=== PATIENT | female | born 1945 | race Caucasian/White ===

== ENCOUNTER → 2024-02-01 | Outpatient (CLI) | payer OTHER, SELFPAY ==
[2024-02-01 13:52] LABS: Basophils # (Auto) 0.1 Thou/mm3 (0.0-0.2); Basophils % (Auto) 1 % (0-2.5); Eosinophils # (Auto) 0.1 Thou/mm3 (0.0-0.5); Eosinophils % (Auto) 0 % (0-10); Hematocrit 35.2 % (36.0-46.0); Immature Granulocytes % (Auto) 1 % (0-0); Immature Granulocytes Auto 0.09 Thou/mm3 (0.00-0.00); Lymphocytes # (Auto) 1.5 Thou/mm3 (1.0-4.8); Lymphocytes % (Auto) 8 % (10-50); Mean Corpuscular HGB Conc 34.1 g/dl (31.0-37.0); Mean Corpuscular Hemoglobin 29.1 pg (25.0-35.0); Mean Corpuscular Volume 85 fL (80-100); Monocytes # (Auto) 1.4 Thou/mm3 (0.0-0.8); Monocytes % (Auto) 7 % (0-12); Neutrophils # (Auto) 15.9 Thou/mm3 (1.8-7.7); Neutrophils % (Auto) 84 % (37-80); Nucleated Red Blood Cell % 0 /100 WBC (0); Platelet Count 436 Thou/mm3 (140-440); RDW Standard Deviation 42.2 fL (36.4-46.3); Red Blood Count 4.12 Miln/mm3 (4.00-5.20)
[2024-02-01 14:30] LABS: Alanine Aminotransferase 14 U/L (10-49); Albumin, Serum 4.7 gm/dL (3.4-4.8); Albumin/Globulin Ratio 2.4 (1.2-2.2); Alkaline Phosphatase 97 U/L (46-116); Anion Gap 8 (7-16); Aspartate Amino Transferase 17 U/L (0-34); BUN/Creatinine Ratio 11 Ratio (12-20); Bilirubin,Total 0.9 mg/dL (0.3-1.2); Blood Urea Nitrogen 11 mg/dL (9-23); Carbon Dioxide 26.1 mMol/L (20.0-31.0); Cardiac Risk Estimate 2.5 RATIO (3.7-5.6); Chloride 96 mMol/L (98-107); Cholesterol 173 mg/dL (132-200); Glucose 115 mg/dL (74-106); HDL Cholesterol 68 mg/dL (40-60); LDL Cholesterol,Calculated 86 mg/dL (0-130); Osmolality,Calculated 261 (275-295); Potassium 3.8 mMol/L (3.4-5.1); Sodium 130 mMol/L (136-145); Thyroid Stimulating Hormone 2.84 uIU/mL (0.55-4.78); Total Protein 6.7 gm/dL (5.7-8.2); Triglycerides 96 mg/dL (30-150); eGFR 57 See Note
[2024-02-01 15:33] LABS: Collection Type, Urine Clean Catch
[2024-02-01 16:06] LABS: Bilirubin,Urine Negative (Negative); Blood,Urine Negative (Negative); Clarity,Urine Clear (Clear/Hazy); Color,Urine Lt-Yellow (Lt Yel-Yel); Glucose, Urine Negative (Negative); Ketones,Urine Negative (Negative); Leukocyte Esterase,Urine Negative (Negative); Nitrite,Urine Negative (Negative); PH,Urine 7.5 (5.0-7.0); Protein,Urine Negative (Neg - Trace); RBC,Urine 1 /hpf (0-3); Specific Gravity,Urine 1.011 (1.001-1.035); Squamous Epithelial Cell,Urine 4 /hpf (0-5); Urobilinogen,Urine Negative mg/dL (0.0-1.0); WBC,Urine 2 /hpf (0-5)
== END | disposition home or self-care (01) ==
LOC: COPL 12:32
PROVIDERS: PCP Internal Medicine; Referring Provider Internal Medicine; Visit Provider Internal Medicine
DX: E03.9 Hypothyroidism, unspecified (principal); I10 Essential (primary) hypertension; E78.5 Hyperlipidemia, unspecified
CPT/HCPCS: 36415; 80053; 80061; 81001; 83970; 84443; 85025

== ENCOUNTER → 2024-06-20 | Outpatient (CLI) | payer OTHER, SELFPAY ==
[2024-06-20 11:00] LABS: Collection Type, Urine Clean Catch
[2024-06-20 11:25] LABS: Basophils # (Auto) 0.1 Thou/mm3 (0.0-0.2); Basophils % (Auto) 1 % (0-2.5); Eosinophils # (Auto) 0.2 Thou/mm3 (0.0-0.5); Eosinophils % (Auto) 2 % (0-10); Hematocrit 32.7 % (36.0-46.0); Hemoglobin 11.2 g/dL (12.0-16.0); Immature Granulocytes % (Auto) 1 % (0-0); Immature Granulocytes Auto 0.08 Thou/mm3 (0.00-0.00); Lymphocytes # (Auto) 2.4 Thou/mm3 (1.0-4.8); Lymphocytes % (Auto) 27 % (10-50); Mean Corpuscular HGB Conc 34.3 g/dl (31.0-37.0); Mean Corpuscular Hemoglobin 27.9 pg (25.0-35.0); Mean Corpuscular Volume 81 fL (80-100); Monocytes % (Auto) 11 % (0-12); Neutrophils # (Auto) 5.3 Thou/mm3 (1.8-7.7); Neutrophils % (Auto) 58 % (37-80); Nucleated Red Blood Cell % 0 /100 WBC (0); Platelet Count 398 Thou/mm3 (140-440); RDW Standard Deviation 39.8 fL (36.4-46.3); Red Blood Count 4.02 Miln/mm3 (4.00-5.20); White Blood Count 9.1 Thou/mm3 (3.6-11.0)
[2024-06-20 11:38] LABS: Bilirubin,Urine Negative (Negative); Blood,Urine Negative (Negative); Clarity,Urine Clear (Clear/Hazy); Color,Urine Colorless (Lt Yel-Yel); Glucose, Urine Negative (Negative); Ketones,Urine Negative (Negative); Leukocyte Esterase,Urine Negative (Negative); Nitrite,Urine Negative (Negative); Protein,Urine Negative (Neg - Trace); RBC,Urine < 1 /hpf (0-3); Specific Gravity,Urine 1.006 (1.001-1.035); Squamous Epithelial Cell,Urine < 1 /hpf (0-5); Urobilinogen,Urine Negative mg/dL (0.0-1.0); WBC,Urine < 1 /hpf (0-5)
[2024-06-20 11:52] LABS: Glucose Estimated Average 131 mg/dL (80-131); Hemoglobin A1C 6.2 % Hgb (4.8-6.0)
[2024-06-20 11:54] LABS: Parathyroid Hormone Intact 107.7 pg/ml (18.5-88.0)
[2024-06-20 12:01] LABS: Alanine Aminotransferase 12 U/L (10-49); Albumin, Serum 4.5 gm/dL (3.4-4.8); Albumin/Globulin Ratio 2.3 (1.2-2.2); Alkaline Phosphatase 109 U/L (46-116); Anion Gap 9 (7-16); Aspartate Amino Transferase 20 U/L (0-34); BUN/Creatinine Ratio 14 Ratio (12-20); Bilirubin,Total 0.7 mg/dL (0.3-1.2); Blood Urea Nitrogen 13 mg/dL (9-23); Calcium 9.7 mg/dL (8.3-10.6); Calcium (Corrected) 9.7 mg/dL (8.5-10.1); Carbon Dioxide 28.3 mMol/L (20.0-31.0); Cardiac Risk Estimate 2.6 RATIO (3.7-5.6); Chloride 92 mMol/L (98-107); Cholesterol 153 mg/dL (132-200); Creatinine (Component) 0.9 mg/dL (0.6-1.3); Glucose 110 mg/dL (74-106); HDL Cholesterol 60 mg/dL (40-60); LDL Cholesterol,Calculated 70 mg/dL (0-130); Osmolality,Calculated 260 (275-295); Potassium 3.9 mMol/L (3.4-5.1); Sodium 129 mMol/L (136-145); Thyroid Stimulating Hormone 7.99 uIU/mL (0.55-4.78); Total Protein 6.5 gm/dL (5.7-8.2); Triglycerides 113 mg/dL (30-150); Uric Acid 7.6 mg/dL (3.1-7.8); eGFR > 60 See Note
[2024-06-20 12:07] LABS: Vitamin B12 976 pg/mL (211-911)
== END | disposition home or self-care (01) ==
LOC: COPL 10:09
PROVIDERS: PCP Internal Medicine; Referring Provider Internal Medicine; Visit Provider Internal Medicine
DX: E03.9 Hypothyroidism, unspecified (principal); I10 Essential (primary) hypertension; E78.5 Hyperlipidemia, unspecified; D51.9 Vitamin B12 deficiency anemia, unspecified; E55.9 Vitamin D deficiency, unspecified
CPT/HCPCS: 36415; 80053; 80061; 81001; 82306; 82607; 83036; 83970; 84443; 84550; 85025

== ENCOUNTER 2024-08-17 13:58 | Emergency (ER) | payer OTHER, SELFPAY ==
[2024-08-17 13:59] VITALS: BMI 28.3
--- NOTE | 2024-08-17 14:02 | EKG_ITS ---
[facility] Test Date: 2024-08-17 Pat Name: ADAM GARCIA Department: Room: - Gender: Female [employer] Supervisor: : 1945 Requested By: ED Temporary Provider Order Number: [id number] Reading MD: ED Temporary Provider Measurements Intervals [place] Rate: 65 P: [place]: QRS: -42 QRSD: 85 T: -4 QT: 375 QTc: 393 Interpretive Statements ATRIAL FIBRILLATION LEFT AXIS DEVIATION [QRS AXIS < -30] LOW QRS VOLTAGE IN PRECORDIAL LEADS [QRS DEFLECTION < 1.0 mV IN CHEST LEADS] ANTEROSEPTAL MYOCARDIAL INFARCTION , OF INDETERMINATE AGE [40+ ms Q WAVE IN V1-V4] No previous ECG available for comparison /store/S0/[id number]
[2024-08-17 14:12] VITALS: BP 137/83; PULSE 66; RESP 18; TEMP 36.8; O2SAT 98
--- NOTE | 2024-08-17 14:13 | XR_ITS ---
Examination: AP lateral chest 2 views TECHNIQUE: Sitting AP lateral chest 2 views Date and time: August 17, 2024 1526 hours Comparison January 142019 INDICATIONS: Chest pain today. FINDINGS: Moderate hyperexpansion Accentuation basilar bronchovascular markings. Stable small granuloma right upper lobe Normal heart size No lobar pneumonia or pulmonary edema IMPRESSION: COPD Basilar bronchitis pattern
--- NOTE | 2024-08-17 14:13 | XR_ITS ---
EXAMINATION: Ankle, left 3 views . Technique: Ankle AP, oblique, lateral 3 views Date and time of exam: August 17, 2024 1518 hours INDICATIONS: Injury to the ankle today, ankle pain. FINDINGS: Acute fractures distal fibular shaft, on the oblique view 4 mm offset of the main fracture fragments Medial malleolar fracture, 5 mm separation at the fracture site No definite ankle dislocation IMPRESSION: Bimalleolar ankle fractures
--- NOTE | 2024-08-17 14:13 | XR_ITS ---
Examination: CT brain head without contrast. 2-D sagittal coronal reconstructions Date and time of exam:August 17, 2024 1506 hours INDICATIONS: Syncopal episode today, patient fell with injury to head, head pain CTDI: vol (mGy):46.1 DLP: (mGycm):875 Technique: Multiple CT axial sections of the brain have been obtained, 5 mm slice thickness. Contrast has not been administered. 2-D sagittal, coronal reconstructions have been obtained Low dose protocols were performed. One or more of the following dose reduction techniques were used; automated exposure control, adjustment of the mA and/or KV according to patient size, use of iterative reconstruction technique. Findings: No significant ventricular enlargement. Intra-axial or extra-axial hemorrhage density is not seen. No mass effect or midline shift Basal cisterns are not remarkable. Fourth ventricle is midline. Cranial vault intact. Impression: Negative for acute hemorrhage, mass effect or midline shift
--- NOTE | 2024-08-17 14:14 | EDRME_ITS ---
Rapid Medical Screening Exam [facility] Arrival date/time: 08/17/24 13:58 78-year-old female with a history of hyperlipidemia, hypertension, presents to the emergency room with a chief complaint of a syncopal episode that occurred today while in the restroom. Patient states she passed out fell hit her head and now having injury to her left ankle as well. I have greeted and performed a focused initial assessment of this patient. A comprehensive ED assessment and evaluation of the patient, analysis of all test results, and completion of the medical decision making process will be conducted by additional ED providers. Chief Complaint: Syncope / Near Syncope Vital signs: Vital Signs Temperature 98.2 F 08/17/24 14:12 Pulse Rate 66 08/17/24 14:12 Respiratory Rate 18 08/17/24 14:12 Blood Pressure 137/83 H 08/17/24 14:12 Pulse Oximetry (%) 98 08/17/24 14:12 Oxygen Delivery Method Room Air 08/17/24 14:12 Vital signs reviewed by provider: Yes
[2024-08-17 15:12] LABS: Basophils % (Auto) 0 % (0-2.5); Eosinophils % (Auto) 0 % (0-10); Hematocrit 34.5 % (36.0-46.0); Hemoglobin 12.3 g/dL (12.0-16.0); Immature Granulocytes % (Auto) 1 % (0-0); Immature Granulocytes Auto 0.06 Thou/mm3 (0.00-0.00); Lymphocytes # (Auto) 1.1 Thou/mm3 (1.0-4.8); Lymphocytes % (Auto) 9 % (10-50); Mean Corpuscular HGB Conc 35.7 g/dl (31.0-37.0); Mean Corpuscular Hemoglobin 28.3 pg (25.0-35.0); Mean Corpuscular Volume 80 fL (80-100); Monocytes # (Auto) 1.1 Thou/mm3 (0.0-0.8); Monocytes % (Auto) 9 % (0-12); Neutrophils # (Auto) 10.1 Thou/mm3 (1.8-7.7); Neutrophils % (Auto) 82 % (37-80); Nucleated Red Blood Cell % 0 /100 WBC (0); Platelet Count 338 Thou/mm3 (140-440); RDW Standard Deviation 40.5 fL (36.4-46.3); Red Blood Count 4.34 Miln/mm3 (4.00-5.20); White Blood Count 12.4 Thou/mm3 (3.6-11.0)
[2024-08-17 15:29] LABS: Alanine Aminotransferase 15 U/L (10-49); Albumin, Serum 4.7 gm/dL (3.4-4.8); Albumin/Globulin Ratio 2.1 (1.2-2.2); Alkaline Phosphatase 105 U/L (46-116); Anion Gap 15 (7-16); Aspartate Amino Transferase 27 U/L (0-34); BUN/Creatinine Ratio 12 Ratio (12-20); Bilirubin,Total 0.5 mg/dL (0.3-1.2); Blood Urea Nitrogen 12 mg/dL (9-23); Calcium 9.1 mg/dL (8.3-10.6); Calcium (Corrected) 9.1 mg/dL (8.5-10.1); Carbon Dioxide 22.1 mMol/L (20.0-31.0); Chloride 88 mMol/L (98-107); Estimated Creatinine Clearance 41.9 mL/min (>60); Globulin 2.2 gm/dL (2.3-3.5); Glucose 116 mg/dL (74-106); Osmolality,Calculated 252 (275-295); Potassium 2.9 mMol/L (3.4-5.1); Sodium 125 mMol/L (136-145); Total Protein 6.9 gm/dL (5.7-8.2); Troponin I < 0.002 ng/mL (0.0-0.045); eGFR 57 See Note
[2024-08-17 15:30] LABS: Partial Thromboplastin Time 26.1 Seconds (22.0-36.0); Prothrombin Time 11.3 Seconds (9.0-12.2)
[2024-08-17 15:40] LABS: B-Type Natriuretic Peptide 186 pg/mL (0-100)
[2024-08-17 16:23] LABS: Collection Type, Urine Clean Catch
[2024-08-17 16:44] LABS: Bacteria,Urine Rare; Bilirubin,Urine Negative (Negative); Blood,Urine Negative (Negative); Clarity,Urine Clear (Clear/Hazy); Color,Urine Lt-Yellow (Lt Yel-Yel); Glucose, Urine Negative (Negative); Ketones,Urine Negative (Negative); Leukocyte Esterase,Urine Negative (Negative); Nitrite,Urine Negative (Negative); Protein,Urine Negative (Neg - Trace); RBC,Urine 1 /hpf (0-3); Specific Gravity,Urine 1.015 (1.001-1.035); Squamous Epithelial Cell,Urine < 1 /hpf (0-5); Urobilinogen,Urine Negative mg/dL (0.0-1.0); WBC,Urine 1 /hpf (0-5)
[2024-08-17 17:13] VITALS: BP 131/79; PULSE 61; RESP 18; TEMP 36.7; O2SAT 98
--- NOTE | 2024-08-17 17:43 | PD.EDLOWEX ---
Lower Extremity Injury RME/HPI General Chief Complaint: Syncope / Near Syncope Stated Complaint: PASSED OUT AROUND 1100,LEFT ANKLE/RIGHT ELBOW PAIN Arrival date/time: 08/17/24 13:58 RME / HPI RME / HPI Narrative: 08/17/24 13:58 78-year-old female with a history of hyperlipidemia, hypertension, presents to the emergency room with a chief complaint of a syncopal episode that occurred today while in the restroom. Patient states she passed out fell hit her head and now having injury to her left ankle as well. I have greeted and performed a focused initial assessment of this patient. A comprehensive ED assessment and evaluation of the patient, analysis of all test results, and completion of the medical decision making process will be conducted by additional ED providers. DR. THOMSON MAIN ED EVALUATION 78 year old female with history of hypertension, hyperlipidemia presents to the ED with complaint of left ankle pain after syncopal episode today. Patient states she had just got done using the restroom when she began to feel faint. States she walked to her room to lay on the bed. However, woke up on her bedroom floor with left ankle and right elbow pain. States the pain in her left ankle is aggravated with movements and bearing weight, minimally improved with immobilization. No other injuries or complaints reported. Patient denied any chest pain or shortness of breath prior to syncope. Related Data Home Medications ?Medication ?Instructions ?Recorded ?Confirmed Benazepril Hcl * (LOTENSIN *) 10 mg PO QDAY #0 tabs 08/15/15 01/04/23 omeprazole 40 mg capsule,delayed 40 mg PO QDAY ##0 08/15/15 01/04/23 release Levothyroxine * (SYNTHROID *) 88 mcg PO ACBR #0 tabs 04/21/16 01/04/23 diltiazem HCl 180 mg 180 mg PO QDAY 10/30/17 01/04/23 capsule,extended release 24 hr, controlled (DILT-XR) atorvastatin 10 mg tablet 10 mg PO HS 06/19/21 01/04/23 fluticasone propionate 110 1 puff inhalation BID PRN SOB 06/08/22 01/04/23 mcg/actuation HFA aerosol inhaler (Flovent HFA) hydrochlorothiazide 12.5 mg capsule 12.5 mg PO QDAY 06/08/22 01/04/23 apixaban 5 mg tablet (Eliquis) 5 mg PO QDAY 01/04/23 01/04/23 calcitriol 0.25 mcg capsule See Rx Instructions .Route .COMPLEX 01/04/23 01/04/23 Previous Rx's ?Medication ?Instructions ?Recorded hydrocodone 5 mg-acetaminophen 325 1 tab PO Q6H PRN pain #14 tabs 08/17/24 mg tablet Allergies Allergy/AdvReac Type Severity Reaction Status Date / Time diclofenac Allergy Severe low blood Verified 08/17/24 14:01 pressure Review of Systems Review of Systems Narrative Review of Systems: GEN: No fever, no chills, no weight loss EYES: No discharge, no visual changes, no pain HEENT: No ear pain, no congestion, no sore throat PULM: No shortness of breath, no cough, no congestion CV: No chest pain, no dyspnea on exertion, no palpitations GI: No nausea, no vomiting, no diarrhea, no pain, no constipation : No frequency, no urgency, no dysuria MUSC/SKEL: +left ankle pain, +right elbow pain, no back pain SKIN: No rash PSYCH: No hallucinations, no depression HEME/LYMPH: No easy bleeding or bruising tendencies NEURO: No weakness, no headache Past Medical History Past Medical History NEUROLOGIC: Positive Neurological Disorders and Seizures (DUE TO MEDS, RESOLVED) CARDIAC: Positive Cardiac Disorders, Atrial Fibrillation, Hypercholesterolemia and Hypertension RESPIRATORY: Positive Chronic Obstructive Pulmonary Disease (COPD) (2nd hand smoke) and Asthma GASTROINTESTINAL: Positive Gastroesophageal Reflux Disease MUSCULOSKELETAL: Positive Arthritis ENT: Positive Cataracts (FABRIZIO) OTHER HISTORY: Positive Chicken Pox, Measles and Mumps Family History FAMILY HISTORY: Positive Family Cancer (half sister breast CA) Surgical History SURGICAL: Positive Hysterectomy (W/ LEFT OOPHERECTOMY) Social History SMOKING STATUS: Never smoker ED Exam Narrative Physical exam: GENERAL APPEARANCE: alert and oriented x 4, well-developed, well-nourished, no acute distress HEENT: Normocephalic, atraumatic; pupils equal, round, reactive to light; EOMI; mucous membranes pink, moist; oropharynx clear NECK: Supple LUNGS: CTABL; no wheezes, no rales, no rhonchi HEART: Regular rate, regular rhythm; normal S1, S2; no murmurs ABDOMEN: non distended; normal BS; soft, no tenderness, no guarding, no rebound; no masses, no organomegaly, no hernia BACK: no CVA tenderness EXTREMITIES: Left ankle swelling and tenderness with limited range of motion secondary to pain, good pedal pulses; no edema NEUROLOGIC: awake; alert and oriented x4; cranial nerves II-XII grossly intact; no focal sensory or motor deficits PSYCHIATRIC: appropriate mood and affect SKIN: warm, dry, normal color; no rashes Course Quality Measures none Orders Category Date Time Status EKG (ED ONLY) *Do not use* NOW Care 08/17/24 14:[address] head/brain wo con Stat Exams 08/17/24 14:13 Completed EKG (ED Only) Stat Exams 08/17/24 14:02 Ordered XR ankle comp LT min 3V Stat Exams 08/17/24 14:13 Completed XR chest 2V Stat Exams 08/17/24 14:13 Completed B-Type Natriuretic Peptide Stat Lab 08/17/24 14:58 Completed CBC Stat Lab 08/17/24 14:58 Completed Comprehensive Metabolic Panel Stat Lab 08/17/24 14:58 Completed Magnesium Stat Lab 08/17/24 14:53 Completed Partial Thromboplastin Time Stat Lab 08/17/24 14:58 Completed Prothrombin Time with INR Stat Lab 08/17/24 14:58 Completed Troponin I Stat Lab 08/17/24 14:58 Completed Urinalysis Stat Lab 08/17/24 16:15 Completed HYDROcodone*/APAP 5/325 [[place] 5/325] Med 08/17/24 17:38 Discontinued 1 tab PO X1 ONE KCL 10% Liq UDC 15 ML Med 08/17/24 17:38 Discontinued 40 meq PO X1 ONE Vital Signs Vital signs: Vital Signs Temperature 98.2 F 08/17/24 14:12 Pulse Rate 66 08/17/24 14:12 Respiratory Rate 18 08/17/24 14:12 Blood Pressure 137/83 H 08/17/24 14:12 Pulse Oximetry (%) 98 08/17/24 14:12 Oxygen Delivery Method Room Air 08/17/24 14:12 Pulse ox is 98% on room air which is adequate. Procedures -ED Splint Fabrication: Pre-Fabricated Type: Ankle Stirrup Reason for Splint: Optimal Positioning Circulation Distal to Splint: Yes Movement Distal to Splint: Yes Senation Distal to Splint: Yes Tolerance: Tolerates Well Extremity Injury, Lower MDM Narrative MDM Narrative:: I, Katy Lou, norberto scribing for and in the presence of Dr. Thomson. Patient data External records reviewed:: [facility] previous records (I reviewed ED visit on 08/31/2022 ) Clinical information provided by:: patient Social determinants that could affect healthcare access:: none Patient has the following chronic illnesses:: HTN, HLD How is presenting disease/condition affected by chronic disease/condition?: uneffected by Evaluation data The following diagnostics were reviewed and interpreted by me:: lab results and radiology exam(s) Lab and/or radiology exams considered but not ordered:: None Interpretation Summary: Ordering Physician: Enoc Valdez Date of Service: 08/17/24 Procedure(s): XR ankle comp LT min 3V Accession Number(s): [id number] cc: Enoc Valdez; Haile Martin MD; Sergio Luna MD~ EXAMINATION: Ankle, left 3 views . Technique: Ankle AP, oblique, lateral 3 views Date and time of exam: August 17, 2024 1518 hours INDICATIONS: Injury to the ankle today, ankle pain. FINDINGS: Acute fractures distal fibular shaft, on the oblique view 4 mm offset of the main fracture fragments Medial malleolar fracture, 5 mm separation at the fracture site No definite ankle dislocation IMPRESSION: Bimalleolar ankle fractures Dictated By: Haile Martin MD Signed By: <Electronically signed by Haile Martin MD in OV> 08/17/24 1525 Ordering Physician: Enoc Valdez Date of Service: 08/17/24 Procedure(s): XR chest 2V Accession Number(s): [id number] cc: Enoc Valdez; Haile Martin MD; Sergio Luna MD~ Examination: AP lateral chest 2 views TECHNIQUE: Sitting AP lateral chest 2 views Date and time: August 17, 2024 1526 hours Comparison January 142019 INDICATIONS: Chest pain today. FINDINGS: Moderate hyperexpansion Accentuation basilar bronchovascular markings. Stable small granuloma right upper lobe Normal heart size No lobar pneumonia or pulmonary edema IMPRESSION: COPD Basilar bronchitis pattern Dictated By: Haile Martin MD Signed By: <Electronically signed by Haile Martin MD in OV> 08/17/24 1540 Ordering Physician: Enoc Valdez Date of Service: 08/17/24 Procedure(s): CT head/brain wo con Accession Number(s): [id number] cc: Enoc Valdez; Haile Martin MD; Sergio Luna MD~ Examination: CT brain head without contrast. 2-D sagittal coronal reconstructions Date and time of exam:August 17, 2024 1506 hours INDICATIONS: Syncopal episode today, patient fell with injury to head, head pain CTDI: vol (mGy):46.1 DLP: (mGycm):875 Technique: Multiple CT axial sections of the brain have been obtained, 5 mm slice thickness. Contrast has not been administered. 2-D sagittal, coronal reconstructions have been obtained Low dose protocols were performed. One or more of the following dose reduction techniques were used; automated exposure control, adjustment of the mA and/or KV according to patient size, use of iterative reconstruction technique. Findings: No significant ventricular enlargement. Intra-axial or extra-axial hemorrhage density is not seen. No mass effect or midline shift Basal cisterns are not remarkable. Fourth ventricle is midline. Cranial vault intact. Impression: Negative for acute hemorrhage, mass effect or midline shift Dictated By: Haile Martin MD Signed By: <Electronically signed by Haile Martin MD in OV> 08/17/24 1527 Medications / Prescriptions Medications or Prescriptions considered but not ordered:: None Medication administrations:: Medication Administration History Discontinued Medications Hydrocodone Bitart/Acetaminophen (Hydrocodone/Apap 5/325 Tablet) 1 tab PO X1 ONE Stop: 08/17/24 17:39 Last Admin: 08/17/24 17:45 Dose: 1 tab Documented By: EH Potassium Chloride (Potassium Chloride 10% 20 Meq/15 Ml Udc) 40 meq PO X1 ONE Stop: 08/17/24 17:39 Last Admin: 08/17/24 17:45 Dose: 40 meq Documented By: EH See above Consultations Consultation(s) initiated? (list below): Yes Consultation #1 (Physician, Specialty, Details): I spoke with ortho Dr. Velasco. Discussed patients PMHx, HPI, ED course, exam findings, and radiology results. Recommended placing the ankle in a splint and following up with ortho on an outpatient basis. Time: 17:30 Diagnosis Most likely diagnosis given after review of the tests above:: Bimalleolar avulsion fracture of left ankle Syncope Hypokalemia Admission Indicated Admission indicated?: not indicated Admission Request Was there a request for admission?: No Disposition Plan Disposition Plan: Discharge Discharge Attestation Discharge Attestation: The patient and all family members were given an opportunity to ask questions and understood the discharge instructions. Discharge instructions specifically effects, indications for sooner follow up or return to the emergency department, and the expected course of current diagnosis. Patient condition: Stable Discharge Plan Plan Patient Disposition: HOME (Self Care) Prescriptions/Referrals Prescriptions/Med Rec: New hydrocodone-acetaminophen 5-325 mg tablet 1 tab PO Q6H MDD 9 PRN (Reason: pain) Qty: 14 0RF No Action omeprazole 40 MG capsule,delayed release(DR/EC) 40 mg PO QDAY Qty: 0 Benazepril Hcl * (LOTENSIN *) 10 MG tablet 10 mg PO QDAY Qty: 0 Levothyroxine * (SYNTHROID *) 88 mcg tablet 88 mcg PO ACBR Qty: 0 diltiazem HCl [DILT-XR] 180 mg Capsule,Ext.Rel 24h Degradable 180 mg PO QDAY atorvastatin 10 mg tablet 10 mg PO HS hydrochlorothiazide 12.5 mg capsule 12.5 mg PO QDAY Patient Comments: TAKE ONE CAPSULE BY MOUTH EVERY MORNING A DIURETIC fluticasone propionate [Flovent HFA] 110 mcg/actuation HFA aerosol inhaler 1 puff INHALATION BID PRN (Reason: SOB) Patient Comments: Inhale 1 puff by Mouth twice a day rinse mouth after use calcitriol 0.25 mcg capsule See Rx Instructions .ROUTE .COMPLEX Patient Comments: TAKE ONE CAPSULE BY MOUTH TWICE A WEEK Rx Instructions: 0.25 mcg orally DAILY FOR 5 DAYS A WEEK Eliquis 5 mg tablet 5 mg PO QDAY Patient Comments: TAKE ONE TABLET BY MOUTH TWICE DAILY Referrals: Larry Trevizo MD [Physician] - Sergio Luna MD [Primary Care Provider] - In 1 week Problem List Clinical Impression: Bimalleolar avulsion fracture of left ankle, Syncope, Hypokalemia Patient/Caregiver Discharge Instructions Education Materials: ED Ankle Fracture, ED Crutch Walking, ED Fainting, Uncertain Cause Additional Instructions: Follow up with orthopedist. Call office for appointment Print Language: Greenlandic Stand Alone Forms: Laura Award Info., Patient Portal Info Letter
[2024-08-17] MEDS: HYDROcodone/APAP 5/325 TABLET 1 TAB PO (17:45)
[2024-08-17] MEDS: POTASSIUM CHLORIDE 10% 20 MEQ/15 ML UDC 40 MEQ PO (17:45)
[2024-08-17 17:54] LABS: Magnesium 1.6 mg/dL (1.6-2.6)
== END 2024-08-17 18:10 | disposition home or self-care (01) ==
PROVIDERS: Nurse Practitioner Family; Emergency Provider Emergency Medicine; PCP Internal Medicine
DX: S82.842A Displaced bimalleolar fracture of left lower leg, initial encounter for closed fracture (principal); R55 Syncope and collapse; E87.6 Hypokalemia; W19.XXXA Unspecified fall, initial encounter; E78.5 Hyperlipidemia, unspecified; I10 Essential (primary) hypertension; J44.9 Chronic obstructive pulmonary disease, unspecified
CPT/HCPCS: 29515; 36415; 70450; 71046; 73610; 80053; 81001; 83735; 83880; 84484; 85025; 85610; 85730; 93005; 99284; A9270

== ENCOUNTER 2024-09-16 21:12 | Inpatient (IN) | payer OTHER, MEDICARE, SELFPAY ==
[2024-09-16] VITALS (22 sets, daily range): BP systolic 61–119; BP diastolic 49–81; PULSE 58–100; RESP 15–23; TEMP 36.6–36.7; O2SAT 87–100; BMI 27.8
--- NOTE | 2024-09-16 21:14 | EKG_ITS ---
[facility] Test Date: 2024-09-16 Pat Name: ADAM GARCIA Department: Room: - Gender: Female Residential Support Specialist: : 1945 Requested By: ED Temporary Provider Order Number: [id number] Reading MD: ED Temporary Provider Measurements Intervals [place] Rate: 85 P: [place]: QRS: -25 QRSD: 86 T: 22 QT: 375 QTc: 447 Interpretive Statements ATRIAL FIBRILLATION BORDERLINE LEFT AXIS DEVIATION [QRS AXIS < -20] LOW QRS VOLTAGE IN PRECORDIAL LEADS [QRS DEFLECTION < 1.0 mV IN CHEST LEADS] PATTERN CONSISTENT WITH PULMONARY DISEASE MODERATE ST DEPRESSION [0.05+ mV ST DEPRESSION] Compared to ECG 08/17/2024 14:14:19 ST (T wave) deviation now present Myocardial infarct finding no longer present /store/S0/[id number]/[id number]
--- NOTE | 2024-09-16 21:17 | XR_ITS ---
Examination: CT brain head without contrast. 2-D sagittal coronal reconstructions Date and time of exam:September 16, 2024 at 11:22 PM INDICATIONS: Syncopal episode today CTDI: vol (mGy):48 DLP: (mGycm):9-59 Technique: Multiple CT axial sections of the brain have been obtained, 5 mm slice thickness. Contrast has not been administered. 2-D sagittal, coronal reconstructions have been obtained Low dose protocols were performed. One or more of the following dose reduction techniques were used; automated exposure control, adjustment of the mA and/or KV according to patient size, use of iterative reconstruction technique. Findings: No significant ventricular enlargement. Intra-axial or extra-axial hemorrhage density is not seen. No mass effect or midline shift Basal cisterns are not remarkable. Fourth ventricle is midline. Cranial vault intact. Impression: Negative for acute hemorrhage, mass effect or midline shift
--- NOTE | 2024-09-16 21:17 | XR_ITS ---
Examination: AP chest single view TECHNIQUE: AP portable upright chest single view Date and time: September 16, 20248 hours INDICATIONS: Abdominal pain and constipation chest pain today FINDINGS: Suspicious for early pneumonia left base obscuring detail hemidiaphragm Right lung clear The osseous structures are intact IMPRESSION: Suspicious for early left basilar pneumonia
--- NOTE | 2024-09-16 21:21 | EDNOTE_ITS ---
ED Weakness RME/HPI General Chief complaint: Chest Pain Stated complaint: chest pain Time Seen by Provider: 09/16/24 21:16 Arrival date/time: 09/16/24 21:12 RME / HPI RME / HPI Narrative: DR THOMSON MAIN ED EVALUATION: 78 y/o female with Hx of COPD. Atrial fibrllation, Hypothyroidism, and HTN BIBA from home presents to ED c/o generalized weakness and fall x just [employer]. Patient recently had surgery performed on her LLE due to fracture and has a cast in place. Per EMS, patient was hypotensive and bradycardic. Blood pressure was initially 60/40. 0.5 mg of Atropine administered resulting in improved blood pressure and heart rate. She is not on supplemental oxygen at home, but was administered 6L O2 via NC due to Os sats of 93%. Patient is compliant with her medications. Denies history of smoking. Patient denies LOC, chest pain, nausea, vomiting or any other associated symptoms or aggravating factors. No modifying factors, no radiation, no migration. No pain reported overall. Related Data Home Medications ?Medication ?Instructions ?Recorded ?Confirmed Benazepril Hcl * (LOTENSIN *) 10 mg PO QDAY #0 tabs 09/17/24 omeprazole 40 mg capsule,delayed 40 mg PO QDAY ##0 09/17/24 release Levothyroxine * (SYNTHROID *) 100 mcg PO ACBR #0 tabs 04/21/16 09/18/24 diltiazem HCl 180 mg 180 mg PO QDAY 10/30/1708/21 capsule,extended release 24 hr, controlled (DILT-XR) atorvastatin 10 mg tablet 10 mg PO HS 06/19/21 5 hydrochlorothiazide 12.5 mg capsule 12.5 mg PO QDAY 09/17/24 apixaban 5 mg tablet (Eliquis) 5 mg PO QDAY 01/04/23 0 09/18/24 calcitriol 0.25 mcg capsule See Rx Instructions .Route .COMPLEX 01/04/23 09/17/24 cetirizine 10 mg tablet (Zyrtec) 10 mg PO QDAY PRN all ergy symptoms 09/18/24 09/18/24 ferrous sulfate 325 mg (65 mg 325 mg PO QDAY 09/18/24 09/18/24 iron) tablet (FeroSul) fluticasone furoate 100 1 inh inhalation QDAY 09/18/24 mcg/actuation blister powder for inhalation (Arnuity Ellipta) Previous Rx's ?Medication ?Instructions ?Recorded amoxicillin 875 mg-potassium 1 tab PO BID diverticulit is #14 09/19/24 clavulanate 125 mg tablet tabs Allergies Allergy/AdvReac Type Severity Reaction Status Date / Time diclofenac Allergy Severe low blood Verified 08/17/24 14:01 pressure Review of Systems Review of Systems Systems Reviewed: All systems reviewed, normal except as documented Past Medical History Past Medical History NEUROLOGIC: Positive Neurological Disorders and Seizures CARDIAC: Positive Cardiac Disorders, Atrial Fibrillation, Hypercholesterolemia and Hypertension RESPIRATORY: Positive Chronic Obstructive Pulmonary Disease (COPD) and Asthma GASTROINTESTINAL: Positive Gastroesophageal Reflux Disease MUSCULOSKELETAL: Positive Arthritis ENT: Positive Cataracts ENDOCRINE: Positive Hypoglycemia OTHER HISTORY: Positive Chicken Pox, Measles and Mumps Family History FAMILY HISTORY: Positive Family Cancer Surgical History SURGICAL: Positive Hysterectomy ED Exam Narrative Physical exam: GENERAL APPEARANCE: alert and oriented x 4, well-developed, well-nourished, no acute distress, appears fatigued VITALS: All vitals were reviewed and the pulse ox is 100% on room air, which is normal according to my interpretation. HEENT: Normocephalic, atraumatic; pupils equal, round, reactive to light; EOMI; mucous membranes pink, moist; oropharynx clear NECK: Supple LUNGS: CTABL; no wheezes, no rales, no rhonchi HEART: Regular rate, regular rhythm; normal S1, S2; no murmurs ABDOMEN: non distended; normal BS; soft, no tenderness, no guarding, no r ebound; no masses, no organomegaly, no hernia BACK: no CVA tenderness EXTREMITIES: atraumatic; no edema NEUROLOGIC: awake; alert and oriented x4; cranial nerves II-XII grossly intact; no focal sensory or motor deficits PSYCHIATRIC: appropriate mood and affect SKIN: warm, mildly diaphoretic, normal color; no rashes Course Quality Measures Current suspected stage: sepsis Possible source: GI tract/intra-abdominal Blood cultures ordered: yes Antibiotic ordered: Yes Pertinent labs: 09/16/24 09/17/24 21:27 00:40 Lactic Acid 2.1 H mMol/L 3.3 H mMol/L (0.4-2.0) (0.4-2.0) Procalcitonin 0.09 ng/ml (0.0-0.49) sepsis Orders Category Date Time Status CT Screening NOW Care 09/16/24 22:09 Completed [employer] NOW Care 09/16/24 21:16 Completed EKG (ED ONLY) *Do not use* NOW Care 09/16/24 21:[address] angio chest abdomen pelvis Stat Exams 09/16/24 22:[address] head/brain wo con Stat Exams 09/16/24 21:17 Completed EKG (ED Only) Stat Exams 09/16/24 21:14 Draft XR abdomen series w chest 1V Stat Exams 09/16/24 21:17 Completed B-Type Natriuretic Peptide Stat Lab 09/16/24 21:27 Completed Blood Culture (Lab) Stat Lab 09/16/24 21:30 Completed CBC Stat Lab 09/16/24 21:27 Completed Comprehensive Metabolic Panel Stat Lab 09/16/24 21:27 Completed Free T4 (Free Thyroxine) Stat Lab 09/16/24 21:27 Completed Lactate (Lactic Acid) Stat Lab 09/16/24 21:27 Completed Lactic Acid, 3 HR Stat Lab 09/17/24 00:40 Completed Lipase Stat Lab 09/16/24 21:27 Completed Magnesium Stat Lab 09/16/24 21:27 Completed Partial Thromboplastin Time Stat Lab 09/16/24 21:27 Completed Procalcitonin Stat Lab 09/16/24 21:27 Completed Prothrombin Time with INR Stat Lab 09/16/24 21:27 Completed TSH [Thyroid Stimulating Hormone] Stat Lab 09/16/24 21:27 Completed Troponin I Stat Lab 09/16/24 21:27 Completed Troponin I Stat Lab 09/17/24 01:45 Completed Urinalysis Stat Lab 09/16/24 23:05 Completed Urine Culture Stat Lab 09/16/24 23:05 Completed KCL 10% Liq UDC 15 ML Med 09/16/24 22:31 Discontinued 40 meq PO X1 ONE Magnesium Sulfate 2 GM Ivpb [Magnesium Sulfate Ivpb] Med 09/16/24 22:31 Discontinued 2 gm in 50 ml IV X1 Ondansetron Inj [Zofran Inj] Med 09/16/24 23:18 Discontinued 4 mg IVP X1 ONE POTASSIUM CHL 10 mEq IVPB [Kcl Ivpb] Med 09/16/24 22:32 Discontinued 10 meq in 100 ml IV Q1H Piper/Tazo 3.375 gm Premix [Zosyn] Med 09/17/24 01:36 Discontinued 3.375 gm in 50 ml IV X1 Sodium Chloride 0.9% 1000 ml [Ns] 1,000 ml Med 09/16/24 23:34 Discontinued IV 999 mls/hr fentaNYL INJ [Sublimaze Inj] Med 09/17/24 01:34 Discontinued 100 mcg IVP X1 ONE fentaNYL INJ [Sublimaze Inj] Med 09/16/24 23:18 Discontinued 50 mcg IVP X1 ONE Vital Signs Vital signs: Vital Signs Blood Pressure 87/49 L 09/16/24 21:14 Weakness MDM Narrative MDM Narrative:: Scribe Attestation: Annetta Wakefield, am scribing for and in the presence of Dr. Thomson. Provider Notation: Although this document has been carefully reviewed, there may still be some phonetic and other typographical errors. These errors are purely grammatical due to imperfections in the software program and should not be construed in any way to compromise the substance of the patient's medical care during this visit. Patient data External records reviewed:: [facility] previous records (Reviewed prior ED records from 08/17/24. Patient was seen for Bimalleolar avulsion fracture of left ankle.) and EMS form Clinical information provided by:: patient and EMS Social determinants that could affect healthcare access:: none Patient has the following chronic illnesses:: Seizures, Atrial Fibrillation, Hypercholesterolemia, Hypertension, Chronic Obstructive Pulmonary Disease (COPD), Asthma, Gastroesophageal Reflux Disease, Arthritis, Cataracts How is presenting disease/condition affected by chronic disease/condition?: exacerbated by Evaluation data The following diagnostics were reviewed and interpreted by me:: lab results, radiology exam(s) and EKG tracing(s) (2120: EKG manual reading, my interpretation: Atrial fibrillation, rate: 85 bpm, diffuse low voltage, diffuse ST flattening, Q wave in V1 and V3, poor R-wave progression, moderate artifact, mild baseline wander.) Lab and/or radiology exams considered but not ordered:: None Interpretation Summary: RADIOLOGY Chest/Abdomen/Pelvis CTA: Patient: ADAM GARCIA. Record#: [id number] Birthdate: 1945 Age/Sex: 78 / F Location: [facility] Attending Dr: Ordering Physician: Casandra Thomson MD Date of Service: 09/16/24 Procedure(s): CT angio chest abdomen pelvis Accession Number(s): [id number] cc: Haile Martin MD; Casandra Thomson MD; Sergio Luna MD~ Examination: CTA chest, with intravenous contrast. CTA abdomen, with intravenous contrast. CTA pelvis, with intravenous contrast. 2-D sagittal and coronal reconstructions. 3-D reconstructions. Date and time of exam: September 16, 2024 10:25 PM INDICATIONS: Suggest abdominal pain today CTDI vol (mgy) 16 DLP (MGycm) 1232 Technique: Multiple CTA images, 2.0 mm slice thickness, obtained chest, abdomen, pelvis, with the high-resolution 64 slice scanner. 90 cc Isovue 370 is administered intravenously. Sagittal and coronal 2-D reconstructions are obtained. 3-D reconstructions, angiographic images are obtained. 3-D postprocessing, including vascular maximum intensity projections. Low dose protocols were performed. One or more of the following dose reduction techniques were used; automated exposure control, adjustment of the mA and/or KV according to patient size, use of iterative reconstruction technique. Findings: No thoracic aortic aneurysm and dilatation or dissection No pulmonary artery filling defects Moderate calcification left anterior descending coronary artery Retrocardiac gastric hernia Calcified granuloma right upper lobe. No pneumonia or pulmonary edema No abdominal aortic aneurysm dilatation or dissection No liver or splenic lesion Absent gallbladder Atrophic pancreas No renal or ureteral calculi, no hydronephrosis No pericecal inflammatory change Colonic diverticulosis Minimal descending colon and sigmoid colon diverticulitis No peridiverticular abscess No pelvic mass Bilateral intact Fat-containing inguinal hernias Prominent osteopenia with mild to moderate diffuse``thoracic and lumbar degenerative disc disease Impression: No thoracic or abdominal aortic aneurysm dilatation or dissection Negative for pulmonary artery emboli No pneumonia pulmonary edema or pleural disease Retrocardiac gastric hernia Large amount of stool throughout the colon Mild colitis which may be mild diverticulitis involving descending colon and rectosigmoid No bowel obstruction Dictated By: Haile Martin MD Signed By: <Electronically signed by Haile Martin MD in OV> 09/16/[address]: Patient: ADAM GARCIA [facility]. Record#: [id number] Birthdate: 1945 Age/Sex: 78 / F Location: [facility] Attending Dr: Ordering Physician: aCsandra Thomson MD Date of Service: 09/16/24 Procedure(s): CT head/brain wo con Accession Number(s): [id number] cc: Haile Martin MD; Casandra Thomson MD; Sergio Luna MD~ Examination: CT brain head without contrast. 2-D sagittal coronal reconstructions Date and time of exam:September 16, 2024 at 11:22 PM INDICATIONS: Syncopal episode today CTDI: vol (mGy):48 DLP: (mGycm):9-59 Technique: Multiple CT axial sections of the brain have been obtained, 5 mm slice thickness. Contrast has not been administered. 2-D sagittal, coronal reconstructions have been obtained Low dose protocols were performed. One or more of the following dose reduction techniques were used; automated exposure control, adjustment of the mA and/or KV according to patient size, use of iterative reconstruction technique. Findings: No significant ventricular enlargement. Intra-axial or extra-axial hemorrhage density is not seen. No mass effect or midline shift Basal cisterns are not remarkable. Fourth ventricle is midline. Cranial vault intact. Impression: Negative for acute hemorrhage, mass effect or midline shift Dictated By: Haile Martin MD Signed By: <Electronically signed by Haile Martin MD in OV> 09/16/24 0120 Chest/Abdomen X-Ray: Patient: ADAM GARCIA [facility]. Record#: [id number] Birthdate: 1945 Age/Sex: 78 / F Location: [facility] Attending Dr: Ordering Physician: Casandra Thomosn MD Date of Service: 09/16/24 Procedure(s): XR abdomen series w chest 1V Accession Number(s): [id number] cc: Haile Martin MD; Casandra Thomson MD~ Examination: AP chest single view TECHNIQUE: AP portable upright chest single view Date and time: September 16, 2024 2128 hours INDICATIONS: Abdominal pain and constipation chest pain today FINDINGS: Suspicious for early pneumonia left base obscuring detail hemidiaphragm Right lung clear The osseous structures are intact IMPRESSION: Suspicious for early left basilar pneumonia Dictated By: Haile Martin MD Signed By: <Electronically signed by Haile Martin MD in OV> 09/16/24 2218 Medications / Prescriptions Medications or Prescriptions considered but not ordered:: None Medication administrations:: Medication Administration History Discontinued Medications Acetaminophen (Acetaminophen 325 Mg Tablet) 650 mg PO Q6H PRN PRN Reason: Fever >100.4 Stop: 10/17/24 04:16 Acetaminophen (Acetaminophen 325 Mg Tablet) 650 mg PO Q6H PRN PRN Reason: PAIN SCALE 1-3 (mild Stop: 10/17/24 04:16 Hydrocodone Bitart/Acetaminophen (Hydrocodone/Apap 5/325 Tablet) 1 tab PO Q4HR PRN PRN Reason: PAIN SCALE 4-6 (Moderate Stop: 09/22/24 04:16 Last Admin: 09/17/24 08:00 Dose: 1 tab Documented By: DAA Albuterol/Ipratropium (Albuterol/Ipratropium (Duoneb) Rt Sandra 3 Ml Nebu) 3 ml INH Q6H PRN PRN Reason: SHORTNESS OF BREATH OR WHEEZE Stop: 10/17/24 04:44 Apixaban (Apixaban 2.5 Mg Tablet) 5 mg PO BID DENISE Stop: 10/17/24 08:59 Last Admin: 09/19/24 08:33 Dose: 5 mg Documented By: Admin: 09/18/24 20:23 Dose: 5 mg Documented By: Admin: 09/18/24 08:29 Dose: 5 mg Documented By: Admin: 09/17/24 20:45 Dose: 5 mg Documented By: Admin: 09/17/24 08:55 Dose: 5 mg Documented By: POLI Atorvastatin Calcium (Atorvastatin Calcium 10 Mg Tablet) 10 mg PO HS [facility] Stop: 10/17/24 20:59 Last Admin: 09/18/24 20:23 Dose: 10 mg Documented By: Admin: 09/17/24 20:45 Dose: 10 mg Documented By: HARSHIL Azithromycin (Azithromycin 250 Mg Tablet) 500 mg PO QDAY [facility] Stop: 09/24/24 08:59 Last Admin: 09/19/24 08:33 Dose: 500 mg Documented By: MGEmma Admin: 09/18/24 08:29 Dose: 500 mg Documented By: MGEmma Admin: 09/17/24 08:55 Dose: 500 mg Documented By: POLI Dextrose (Dextrose 50%-Water Inj 50 Ml Syringe) 25 ml IV Q15MIN PRN PRN Reason: BG 50-70 responsive npo pt Stop: 10/17/24 04:21 Dextrose (Dextrose 50%-Water Inj 50 Ml Syringe) 50 ml IV Q15MIN PRN PRN Reason: BG <50 OR BG <70 & pt unresponsive Stop: 10/17/24 04:21 Diltiazem HCl (Diltiazem Cd 180 Mg Capcr) 180 mg PO QDAY [facility] Stop: 10/17/24 14:14 Last Admin: 09/19/24 08:33 Dose: 180 mg Documented By: Admin: 09/18/24 08:28 Dose: 180 mg Documented By: Admin: 09/17/24 16:11 Dose: 180 mg Documented By: POLI Fentanyl Citrate (Fentanyl Cit Inj 50 Mcg/Ml Amp 2ml) 50 mcg IVP X1 ONE Stop: 09/16/24 23:19 Last Admin: 09/16/24 23:47 Dose: 50 mcg Documented By: OXANA Fentanyl Citrate (Fentanyl Cit Inj 50 Mcg/Ml Amp 2ml) 100 mcg IVP X1 ONE Stop: 09/17/24 01:35 Last Admin: 09/17/24 01:53 Dose: 100 mcg Documented By: OXANA Glucagon (Glucagon Inj 1 Mg Vial) 1 mg IM Q15MIN PRN PRN Reason: BG <70, and no IV access Magnesium Sulfate (Magnesium Sulfate Ivpb) 2 gm in 50 mls @ 25 mls/hr IV X1 ONE Stop: 09/17/24 00:30 Last Infusion: 09/17/24 00:58 Dose: Infused Documented By: Admin: 09/16/24 22:51 Dose: 25 mls/hr Documented By: OXANA Potassium Chloride (Kcl Ivpb) 10 meq in 100 mls @ 100 mls/hr IV Q1H DENISE Stop: 09/17/24 02:31 Last Infusion: 09/17/24 02:56 Dose: Infused Documented By: Admin: 09/17/24 01:56 Dose: 100 mls/hr Documented By: Infusion: 09/17/24 01:56 Dose: Infused Documented By: Admin: 09/17/24 00:58 Dose: 100 mls/hr Documented By: Infusion: 09/17/24 00:47 Dose: Infused Documented By: Admin: 09/16/24 23:47 Dose: 100 mls/hr Documented By: Infusion: 09/16/24 23:47 Dose: Infused Documented By: Admin: 09/16/24 22:50 Dose: 100 mls/hr Documented By: OXANA Sodium Chloride (Ns) 1,000 mls @ 999 mls/hr IV .Q1H1M ONE Stop: 09/17/24 00:34 Last Infusion: 09/17/24 00:58 Dose: Infused Documented By: Admin: 09/16/24 23:47 Dose: 999 mls/hr Documented By: OXANA Piperacillin/Tazobactam/Dextrose (Zosyn) 3.375 gm in 50 mls @ 100 mls/hr IV X1 ONE Stop: 09/17/24 02:05 Last Infusion: 09/17/24 03:09 Dose: Infused Documented By: Admin: 09/17/24 01:54 Dose: 100 mls/hr Documented By: OXANA Piperacillin/Tazobactam/Dextrose (Zosyn) 3.375 gm in 50 mls @ 100 mls/hr IV Q6HR DENISE Stop: 09/24/24 07:59 Last Admin: 09/19/24 11:49 Dose: 100 mls/hr Documented By: MGEmma Infusion: 09/19/24 05:50 Dose: Infused Documented By: Admin: 09/19/24 05:20 Dose: 100 mls/hr Documented By: Infusion: 09/19/24 00:16 Dose: Infused Documented By: Admin: 09/18/24 23:46 Dose: 100 mls/hr Documented By: Infusion: 09/18/24 17:39 Dose: Infused Documented By: Admin: 09/18/24 17:09 Dose: 100 mls/hr Documented By: Infusion: 09/18/24 12:50 Dose: Infused Documented By: Admin: 09/18/24 12:20 Dose: 100 mls/hr Documented By: Infusion: 09/18/24 05:30 Dose: Infused Documented By: Admin: 09/18/24 05:00 Dose: 100 mls/hr Documented By: Infusion: 09/18/24 00:35 Dose: Infused Documented By: Admin: 09/18/24 00:05 Dose: 100 mls/hr Documented By: Infusion: 09/17/24 19:05 Dose: Infused Documented By: Admin: 09/17/24 18:18 Dose: 100 mls/hr Documented By: Infusion: 09/17/24 15:43 Dose: Infused Documented By: Admin: 09/17/24 13:55 Dose: 100 mls/hr Documented By: Infusion: 09/17/24 08:48 Dose: Infused Documented By: Admin: 09/17/24 07:59 Dose: 100 mls/hr Documented By: DAA Insulin Human Lispro (Insulin Lispro (Admelog) 1 Unit/0.01 Ml Unit) 0 unit SC AC DENISE; Protocol Stop: 10/17/24 07:29 Last Admin: 09/19/24 11:19 Dose: Not Given Documented By: MGD Non-Admin Reason: Per Protocol Admin: 09/19/24 08:29 Dose: Not Given Documented By: MGD Non-Admin Reason: Per Protocol Admin: 09/18/24 16:39 Dose: Not Given Documented By: SOFIA Non-Admin Reason: blood sugar 105 Admin: 09/18/24 11:42 Dose: Not Given Documented By: MGD Non-Admin Reason: Per Protocol Admin: 09/18/24 08:24 Dose: Not Given Documented By: MGD Non-Admin Reason: Per Protocol Admin: 09/17/24 17:36 Dose: Not Given Documented By: DAA Non-Admin Reason: Glucose, LOW Admin: 09/17/24 11:21 Dose: Not Given Documented By: POLI Non-Admin Reason: Patient Refused Admin: 09/17/24 07:36 Dose: Not Given Documented By: POLI Non-Admin Reason: Change of Condition Comments: pt stated that she is not diabetic Lactulose (Lactulose Syrup 20 Gm/30 Ml Udc) 20 gm PO X1 ONE; Protocol Stop: 09/17/24 04:28 Last Admin: 09/17/24 05:10 Dose: 20 gm Documented By: OXANA Levothyroxine Sodium (Levothyroxine Sodium 100 Mcg Tablet) 100 mcg PO ACBR [facility] Stop: 10/19/24 05:59 Last Admin: 09/19/24 05:36 Dose: 100 mcg Documented By: TU Ondansetron HCl (Ondansetron Inj 2 Mg/Ml Inj 2 Ml) 4 mg IVP X1 ONE Stop: 09/16/24 23:19 Last Admin: 09/16/24 23:48 Dose: 4 mg Documented By: OXANA Ondansetron HCl (Ondansetron Inj 2 Mg/Ml Inj 2 Ml) 4 mg IVP Q6H PRN; Protocol PRN Reason: NAUSEA OR VOMITING Stop: 10/17/24 04:16 Last Admin: 09/18/24 12:19 Dose: 4 mg Documented By: Admin: 09/17/24 11:14 Dose: 4 mg Documented By: Admin: 09/17/24 05:12 Dose: 4 mg Documented By: OXAAN Pantoprazole Sodium (Pantoprazole 20 Mg Tablet) 40 mg PO QDAY [facility] Stop: 10/18/24 08:59 Pantoprazole Sodium (Pantoprazole 20 Mg Tablet) 40 mg PO QDAY [facility] Stop: 10/17/24 22:39 Last Admin: 09/18/24 22:21 Dose: Not Given Documented By: TU Non-Admin Reason: Discontinued Admin: 09/17/24 22:48 Dose: 40 mg Documented By: HARSHIL Pantoprazole Sodium (Pantoprazole 20 Mg Tablet) 40 mg PO QDAY@1500 [facility] Stop: 10/18/24 14:59 Last Admin: 09/19/24 15:24 Dose: 40 mg Documented By: Admin: 09/18/24 14:52 Dose: 40 mg Documented By: SOFIA Potassium Chloride (Potassium Chloride 10% 20 Meq/15 Ml Udc) 40 meq PO X1 ONE Stop: 09/16/24 22:32 Last Admin: 09/16/24 22:50 Dose: 40 meq Documented By: EE Potassium Chloride (Potassium Chloride 20 Meq Tabcr) 40 meq PO X1 ONE Stop: 09/19/24 08:48 Last Admin: 09/19/24 13:32 Dose: 40 meq Documented By: MGD See above Consultations Consultation(s) initiated? (list below): Yes Consultation #1 (Physician, Specialty, Details): Discussed with Dr. Riley for admission. Reviewed the patient?s HPI, PMHx, lab and/or radiology results. Discussed treatment plan. Will consult an admission to the hospitalist. Time: 03:45 Diagnosis Weakness Differential Diagnosis: acute myocardial infarction, anemia, hypoglycemia, hypothyroidism, rhabdomyolysis, sepsis and dehydration Most likely diagnosis given after review of the tests above:: Sepsis, Colitis, Hypotension, Bradycardia, Generalized weakness Admission Indicated Admission indicated?: indicated Explain why admission is indicated or not indicated:: Sepsis, Colitis, Hypotension, Bradycardia Admission Request Was there a request for admission?: Yes Admission Attestation Admission request attestation: Discussed case with [] from Hospitalist service regarding admission. Discussed patients ED course, exam findings, labs, and radiology results. The Hospitalist [agrees,declines] to accept the patient for admission. Disposition Plan Disposition Plan: Admit Discharge Plan Plan Patient Disposition: Admit Acute Care w/in Hospital Problem List Clinical Impression: Sepsis, Bradycardia, Colitis, Generalized weakness, Hypotension Patient/Caregiver Discharge Instructions Discharge Activity: activity as tolerated
[2024-09-16 21:40] LABS: Basophils # (Auto) 0.1 Thou/mm3 (0.0-0.2); Basophils % (Auto) 0 % (0-2.5); Eosinophils # (Auto) 0.2 Thou/mm3 (0.0-0.5); Eosinophils % (Auto) 1 % (0-10); Hematocrit 33.3 % (36.0-46.0); Hemoglobin 11.6 g/dL (12.0-16.0); Immature Granulocytes Auto 0.12 Thou/mm3 (0.00-0.00); Lactate (Lactic Acid) 2.1 mMol/L (0.4-2.0); Lymphocytes # (Auto) 4.4 Thou/mm3 (1.0-4.8); Lymphocytes % (Auto) 30 % (10-50); Mean Corpuscular HGB Conc 34.8 g/dl (31.0-37.0); Mean Corpuscular Hemoglobin 28.8 pg (25.0-35.0); Mean Corpuscular Volume 83 fL (80-100); Monocytes # (Auto) 1.4 Thou/mm3 (0.0-0.8); Monocytes % (Auto) 10 % (0-12); Neutrophils # (Auto) 8.4 Thou/mm3 (1.8-7.7); Neutrophils % (Auto) 58 % (37-80); Nucleated Red Blood Cell # 0.00 Thou/mm3 (0.00-0.00); Nucleated Red Blood Cell % 0 /100 WBC (0); Platelet Count 412 Thou/mm3 (140-440); RDW Standard Deviation 45.5 fL (36.4-46.3); Red Blood Count 4.03 Miln/mm3 (4.00-5.20); White Blood Count 14.5 Thou/mm3 (3.6-11.0)
[2024-09-16 21:54] LABS: INR 1.0 (0.9-1.3); Partial Thromboplastin Time 21.6 Seconds (22.0-36.0); Prothrombin Time 11.4 Seconds (9.0-12.2)
[2024-09-16 22:02] LABS: B-Type Natriuretic Peptide 182 pg/mL (0-100)
--- NOTE | 2024-09-16 22:09 | XR_ITS ---
Examination: CTA chest, with intravenous contrast. CTA abdomen, with intravenous contrast. CTA pelvis, with intravenous contrast. 2-D sagittal and coronal reconstructions. 3-D reconstructions. Date and time of exam: September 16, 2024 10:25 PM INDICATIONS: Suggest abdominal pain today CTDI vol (mgy) 16 DLP (MGycm) 1232 Technique: Multiple CTA images, 2.0 mm slice thickness, obtained chest, abdomen, pelvis, with the high-resolution 64 slice scanner. 90 cc Isovue 370 is administered intravenously. Sagittal and coronal 2-D reconstructions are obtained. 3-D reconstructions, angiographic images are obtained. 3-D postprocessing, including vascular maximum intensity projections. Low dose protocols were performed. One or more of the following dose reduction techniques were used; automated exposure control, adjustment of the mA and/or KV according to patient size, use of iterative reconstruction technique. Findings: No thoracic aortic aneurysm and dilatation or dissection No pulmonary artery filling defects Moderate calcification left anterior descending coronary artery Retrocardiac gastric hernia Calcified granuloma right upper lobe. No pneumonia or pulmonary edema No abdominal aortic aneurysm dilatation or dissection No liver or splenic lesion Absent gallbladder Atrophic pancreas No renal or ureteral calculi, no hydronephrosis No pericecal inflammatory change Colonic diverticulosis Minimal descending colon and sigmoid colon diverticulitis No peridiverticular abscess No pelvic mass Bilateral intact Fat-containing inguinal hernias Prominent osteopenia with mild to moderate diffuse``thoracic and lumbar degenerative disc disease Impression: No thoracic or abdominal aortic aneurysm dilatation or dissection Negative for pulmonary artery emboli No pneumonia pulmonary edema or pleural disease Retrocardiac gastric hernia Large amount of stool throughout the colon Mild colitis which may be mild diverticulitis involving descending colon and rectosigmoid No bowel obstruction
[2024-09-16 22:11] LABS: Alanine Aminotransferase 15 U/L (10-49); Albumin, Serum 4.0 gm/dL (3.4-4.8); Albumin/Globulin Ratio 2.5 (1.2-2.2); Alkaline Phosphatase 185 U/L (46-116); Anion Gap 9 (7-16); Aspartate Amino Transferase 18 U/L (0-34); BUN/Creatinine Ratio 8 Ratio (12-20); Bilirubin,Total 0.5 mg/dL (0.3-1.2); Blood Urea Nitrogen 9 mg/dL (9-23); Calcium 9.5 mg/dL (8.3-10.6); Calcium (Corrected) 9.5 mg/dL (8.5-10.1); Carbon Dioxide 23.3 mMol/L (20.0-31.0); Chloride 100 mMol/L (98-107); Creatinine (Component) 1.1 mg/dL (0.6-1.3); Estimated Creatinine Clearance 37.7 mL/min (>60); Free T4 (Free Thyroxine) 1.93 ng/dL (0.89-1.76); Globulin 1.6 gm/dL (2.3-3.5); Glucose 129 mg/dL (74-106); Lipase 28 U/L (12-53); Magnesium 1.7 mg/dL (1.6-2.6); Osmolality,Calculated 265 (275-295); Procalcitonin 0.09 ng/ml (0.0-0.49); Sodium 132 mMol/L (136-145); Thyroid Stimulating Hormone 6.08 uIU/mL (0.55-4.78); Total Protein 5.6 gm/dL (5.7-8.2); Troponin I < 0.020 ng/mL (0.0-0.045); eGFR 51 See Note
[2024-09-16 22:31] LABS: Potassium 2.6 mMol/L (3.4-5.1)
[2024-09-16] MEDS: POTASSIUM CHLORIDE 10% 20 MEQ/15 ML UDC 40 MEQ PO (22:50)
[2024-09-16] MEDS: POTASSIUM CHL 10 mEq IVPB 10 MEQ/100 ML BAG 100 MEQ IV ×2 (22:50→23:47)
[2024-09-16] MEDS: Magnesium Sulfate 2 GM Ivpb 2 GM/50 ML BAG IV (22:51)
[2024-09-16 23:09] LABS: Collection Type, Urine Clean Catch
[2024-09-16 23:22] LABS: Bilirubin,Urine Negative (Negative); Blood,Urine Negative (Negative); Clarity,Urine Clear (Clear/Hazy); Color,Urine Lt-Yellow (Lt Yel-Yel); Glucose, Urine Negative (Negative); Ketones,Urine Negative (Negative); Leukocyte Esterase,Urine Negative (Negative); Nitrite,Urine Negative (Negative); PH,Urine 7.5 (5.0-7.0); Protein,Urine 1+ (Neg - Trace); RBC,Urine 1 /hpf (0-3); Specific Gravity,Urine 1.017 (1.001-1.035); Squamous Epithelial Cell,Urine < 1 /hpf (0-5); Urobilinogen,Urine Negative mg/dL (0.0-1.0); WBC,Urine 2 /hpf (0-5)
[2024-09-16] MEDS: SODIUM CHLORIDE 0.9% 1000 ML 1,000 ML 999 ML IV (23:47)
[2024-09-16] MEDS: fentaNYL CIT INJ 50 mCg/ML AMP 2ML IVP (23:47)
[2024-09-16] MEDS: ONDANSETRON INJ 2 MG/ML INJ 2 ML 4 MG IVP (23:48)
[2024-09-17] VITALS (85 sets, daily range): BP systolic 104–164; BP diastolic 63–104; PULSE 62–123; RESP 14–28; TEMP 36.3–37.6; O2SAT 96–100
[2024-09-17 00:34] LABS: Reflex Lactate? Y
[2024-09-17 00:49] LABS: Lactic Acid, 3 HR 3.3 mMol/L (0.4-2.0)
[2024-09-17] MEDS: POTASSIUM CHL 10 mEq IVPB 10 MEQ/100 ML BAG 100 MEQ IV ×2 (00:58→01:56)
[2024-09-17] MEDS: fentaNYL CIT INJ 50 mCg/ML AMP 2ML 100 MCG IVP (01:53)
[2024-09-17] MEDS: PIPER/TAZO 3.375 GM PREMIX 3.375 GM/50 ML BAG IV ×4 (01:54→18:18)
[2024-09-17 02:07] LABS: Troponin I < 0.020 ng/mL (0.0-0.045)
--- NOTE | 2024-09-17 04:28 | PD.RESHP ---
Documentation for date of: 09/17/24 HPI History of Present Illness Chief complaint: Low BP and dizziness History of present illness: 78-year-old female with past medical history of A-fib (on diltiazem and Eliquis), hypertension, COPD/asthma, and hypothyroidism was admitted to the hospital on 09/17/2024 after coming to the ED with chief complaints of low blood pressure, dizziness, and weakness. Patient stated that 1 week ago she had surgery for her left ankle as 2 weeks ago she had a fall and she broke her ankle. She stated that when she broke her ankle 2 weeks ago it happened while she was going to the bathroom and she had a syncopal episode where she lost conscious and the last thing she remembers was reaching for the door handle in the bathroom. Patient stated that today her blood pressure was very low around 60 over 40 taken by her daughter and that she was feeling dizzy. Per chart review patient got 0.5 atropine en route via EMS with improvement in heart rate and blood pressure. Patient states that she has been having some constipation as of recently, but that now is normalizing little bit more. She is having some abdominal pain, but denies having any nausea or vomiting. She also stated having a nonproductive cough, but denies having any fevers, chest pain, burning sensation urination, blood in the stools, or any other syncopal episodes. Patient's last bowel movement was today. Patient currently taking Keflex as prescribed by orthopedic surgeon. Patient has no other complaints at this time. ED course: Initially came in hypotensive and afebrile. Initial labs were relevant for leukocytosis, hypokalemia, lactic acidosis, mildly elevated T4, and UA was unremarkable. Initial imaging included chest/abdomen x-ray that show suspicion for left base pneumonia, head CT which was unremarkable, EKG which showed A-fib with a heart rate of 85, and chest/abdomen/pelvis CTA which showed colitis pattern which is concerning for mild diverticulitis involving the descending colon and rectosigmoid colon, but no perforations or bowel obstruction noted. PMH: As above Social Hx: Denies any smoking, drugs, alcohol Medications: Diltiazem, Eliquis, levothyroxine, omeprazole Surgical Hx: Cholecystectomy and left ankle surgery Review of Systems Review of Systems Systems Reviewed: All systems reviewed, normal except as documented Past Medical History Past Medical History NEUROLOGIC: Positive Neurological Disorders and Seizures CARDIAC: Positive Cardiac Disorders, Atrial Fibrillation, Hypercholesterolemia and Hypertension RESPIRATORY: Positive Chronic Obstructive Pulmonary Disease (COPD) and Asthma GASTROINTESTINAL: Positive Gastroesophageal Reflux Disease MUSCULOSKELETAL: Positive Arthritis ENT: Positive Cataracts ENDOCRINE: Positive Hypoglycemia OTHER HISTORY: Positive Chicken Pox, Measles and Mumps Family History FAMILY HISTORY: Positive Family Cancer Surgical History SURGICAL: Positive Hysterectomy Exam Vital Signs Temp Pulse Resp BP Pulse Ox O2 Del Method O2 Flow Rate 98.1 F 76 17 125/63 99 Room Air 2 09/17/24 02:20 09/17/24 02:20 09/17/24 02:20 09/17/24 02:20 09/17/24 02:20 09/17/24 02:20 09/16/24 23:35 Narrative Exam General: A/O x3, no acute distress Eyes: PERRL, EOMI. Anicteric, vision grossly intact. Ears: No ear pain, no ear discharge, Hearing grossly intact. Nose: No nasal discharge. Mouth/Throat: Moist mucous membranes, no redness, no lesions. Neck: Neck supple, non-tender, no cervical lymphadenopathy. Lungs: Clear FABRIZIO to auscultation and percussion, No accessory muscle use. Cardio: Normal S1/S2, irregular rhythm, no murmurs, no JVD Abdomen: Soft,but distended, tender to palpation, no palpable masses, peristalsis present in all quadrants, no guarding or rebound. Extremities: Symmetrical, no significant deformities, no peripheral edema , non-tender, peripheral pulses presents. cast in LLE Skin: No rashes, no lesions, warm to touch. Neuro: No focal neurological deficits. motor and sensory intact Psych: Cooperative, appropriate mood and effect. Results: Labs 09/17/24 04:50 09/16/24 21:27 Labs: Short CBC 09/16/24 Range/Units 21:27 WBC 14.5 H (3.6-11.0) Thou/mm3 Hgb 11.6 L (12.0-16.0) g/dL Hct 33.3 L (36.0-46.0) % Plt Count 412 D (140-440) Thou/mm3 BMP 09/16/24 21:27 Sodium 132 L Potassium 2.6 L* Chloride 100 Carbon Dioxide 23.3 BUN 9 Creatinine 1.1 Glucose 129 H Calcium 9.5 Cardiac Enzymes 09/16/24 09/17/24 Range/Units 21:27 01:45 Troponin I < 0.020 < 0.020 (0.0-0.045) ng/mL Liver Function 09/16/24 Range/Units 21:27 Total Bilirubin 0.5 (0.3-1.2) mg/dL AST 18 (0-34) U/L ALT 15 (10-49) U/L Alkaline Phosphatase 185 H (46-116) U/L Albumin 4.0 (3.4-4.8) gm/dL Urine 09/16/24 Range/Units 23:05 Urine Color Lt-Yellow (Lt Yel-Yel) Urine Clarity Clear (Clear/Hazy) Urine pH 7.5 H (5.0-7.0) Ur Specific [place] 1.017 (1.001-1.035) Urine Protein 1+ A (Neg - Trace) Urine Glucose (UA) Negative (Negative) Quality Measures Quality Measures sepsis Current suspected stage: ruled out Possible source: GI tract/intra-abdominal Blood cultures ordered: yes Antibiotic ordered: Yes Advance care planning discussed with:: patient Medications Home Medications and Allergies Home Medications ?Medication ?Instructions ?Recorded ?Confirmed ?Type Benazepril Hcl * (LOTENSIN *) 10 mg PO QDAY #0 tabs 08/15/15 01/04/23 History omeprazole 40 mg capsule,delayed 40 mg PO QDAY ##0 08/15/15 01/04/23 History release Levothyroxine * (SYNTHROID *) 88 mcg PO ACBR #0 tabs 04/21/16 01/04/23 History diltiazem HCl 180 mg 180 mg PO QDAY 10/30/17 01/04/23 History capsule,extended release 24 hr, controlled (DILT-XR) atorvastatin 10 mg tablet 10 mg PO HS 06/19/21 01/04/23 History fluticasone propionate 110 1 puff inhalation BID PRN SOB 06/08/22 01/04/23 History mcg/actuation HFA aerosol inhaler (Flovent HFA) hydrochlorothiazide 12.5 mg capsule 12.5 mg PO QDAY 06/08/22 01/04/23 History apixaban 5 mg tablet (Eliquis) 5 mg PO QDAY 01/04/23 01/04/23 History calcitriol 0.25 mcg capsule See Rx Instructions .Route .COMPLEX 01/04/23 01/04/23 History Allergies Allergy/AdvReac Type Severity Reaction Status Date / Time diclofenac Allergy Severe low blood Verified 08/17/24 14:01 pressure Visit Medications Acetaminophen (Acetaminophen 325 Mg Tablet) 650 mg PO Q6H PRN PRN Reason: Fever >100.4 Stop: 10/17/24 04:16 Acetaminophen (Acetaminophen 325 Mg Tablet) 650 mg PO Q6H PRN PRN Reason: PAIN SCALE 1-3 (mild Stop: 10/17/24 04:16 Hydrocodone Bitart/Acetaminophen (Hydrocodone/Apap 5/325 Tablet) 1 tab PO Q4HR PRN PRN Reason: PAIN SCALE 4-6 (Moderate Stop: 09/22/24 04:16 Azithromycin (Azithromycin 250 Mg Tablet) 500 mg PO QDAY DENISE Stop: 09/24/24 08:59 Dextrose (Dextrose 50%-Water Inj 50 Ml Syringe) 25 ml IV Q15MIN PRN PRN Reason: BG 50-70 responsive npo pt Stop: 10/17/24 04:21 Dextrose (Dextrose 50%-Water Inj 50 Ml Syringe) 50 ml IV Q15MIN PRN PRN Reason: BG <50 OR BG <70 & pt unresponsive Stop: 10/17/24 04:21 Glucagon (Glucagon Inj 1 Mg Vial) 1 mg IM Q15MIN PRN PRN Reason: BG <70, and no IV access Piperacillin/Tazobactam/Dextrose (Zosyn) 50 mls @ 100 mls/hr IV Q6HR DENISE Stop: 09/24/24 07:59 Insulin Human Lispro (Insulin Lispro (Admelog) 1 Unit/0.01 Ml Unit) 0 unit SC AC [facility]; Protocol Stop: 10/17/24 07:29 Lactulose (Lactulose Syrup 20 Gm/30 Ml Udc) 20 gm PO X1 ONE; Protocol Stop: 09/17/24 04:28 Ondansetron HCl (Ondansetron Inj 2 Mg/Ml Inj 2 Ml) 4 mg IVP Q6H PRN; Protocol PRN Reason: NAUSEA OR VOMITING Stop: 10/17/24 04:16 Discontinued Medications Fentanyl Citrate (Fentanyl Cit Inj 50 Mcg/Ml Amp 2ml) 50 mcg IVP X1 ONE Stop: 09/16/24 23:19 Last Admin: 09/16/24 23:47 Dose: 50 mcg Fentanyl Citrate (Fentanyl Cit Inj 50 Mcg/Ml Amp 2ml) 100 mcg IVP X1 ONE Stop: 09/17/24 01:35 Last Admin: 09/17/24 01:53 Dose: 100 mcg Magnesium Sulfate (Magnesium Sulfate Ivpb) 2 gm in 50 mls @ 25 mls/hr IV X1 ONE Stop: 09/17/24 00:30 Last Infusion: 09/17/24 00:58 Dose: Infused Potassium Chloride (Kcl Ivpb) 10 meq in 100 mls @ 100 mls/hr IV Q1H DENISE Stop: 09/17/24 02:31 Last Infusion: 09/17/24 02:56 Dose: Infused Sodium Chloride (Ns) 1,000 mls @ 999 mls/hr IV .Q1H1M ONE Stop: 09/17/24 00:34 Last Infusion: 09/17/24 00:58 Dose: Infused Piperacillin/Tazobactam/Dextrose (Zosyn) 3.375 gm in 50 mls @ 100 mls/hr IV X1 ONE Stop: 09/17/24 02:05 Last Infusion: 09/17/24 03:09 Dose: Infused Ondansetron HCl (Ondansetron Inj 2 Mg/Ml Inj 2 Ml) 4 mg IVP X1 ONE Stop: 09/16/24 23:19 Last Admin: 09/16/24 23:48 Dose: 4 mg Potassium Chloride (Potassium Chloride 10% 20 Meq/15 Ml Udc) 40 meq PO X1 ONE Stop: 09/16/24 22:32 Last Admin: 09/16/24 22:50 Dose: 40 meq Assessment & Plan Plan 78-year-old female with past medical history of A-fib (on diltiazem and Eliquis), hypertension, COPD/asthma, and hypothyroidism was admitted to the hospital on 09/17/2024 for diverticulitis/colitis and presyncopal episode. #Diverticulitis/colitis #Lactic acidosis #Constipation Patient has been having bowel movements, but has been having some abdominal pain along with abdominal distention more than she previously had. Chest/abdomen/pelvis CTA which showed colitis pattern which is concerning for mild diverticulitis involving the descending colon and rectosigmoid colon with large amount of stool throughout the colon, but no perforations or bowel obstruction noted. Lactic acid up trended to 3.3 could be in the setting of hypotension versus infection WBC 14.5 Patient got IV fluids in the ED Could be related to patient's antibiotic regimen Plan: IV Zosyn Lactulose 20 x 1 to relieve constipation Blood cultures ordered Trend lactic acid Consider GI consult #Presyncope #Hx of syncopal episode #Hypotension #Bradycardia #Hypokalemia #Hx of A-fib Patient stated that around 2 weeks ago she had a syncopal episode when she was in the bathroom which resulted in her ankle fracture. Patient does have a history of A-fib for which she takes diltiazem. Patient today was having low blood pressure 60/40 with a low heart rate and she was feeling dizzy as well. Patient has had no other falls Patient's potassium initially was 2.6 Syncopal episode could be in the setting of medication versus arrhythmia in the setting of hypokalemia with a history of A-fib. EKG showed A-fib with heart rate of 85 Patient got 80 meq of potassium in the ED and 2 g of magnesium [id number] of 5 points indicating 7.2% stroke risk per year HAS-BLED 3 points indicating high risk of major bleeding. Plan: Restart Eliquis 5mg BID Holding off diltiazem in setting of hypotension, patient is rate controlled at the time of this note Echo ordered EKG at 6 AM Keep potassium and magnesium above 4 and 2 respectively to avoid any further arrhythmias Will hold off on hypertensive medication for now as patient came in initially with hypertension Consider consulting cardiology if patient develops again bradycardia or goes into unstable A-fib. #Community acquired pneumonia Patient's chest x-ray that show left base pneumonia Patient has been having a cough Plan: Will start azithromycin 500 mg daily DuoNebs as needed every 6 hours Chronic diseases: #Hx of COPD/asthma #Hx of hypothyroidism Patient's T4 was 1.93 and TSH 6.08 #DM2 Patient's last A1c was 6.2 on 06/2024 ISS and hypoglycemia protocol ordered Disposition: Patient admitted to telemetry for Presyncope and Colitis/Diverticulitis. Diet: Cardiac/Carb cons GI prophylaxis: not indicated DVT prophylaxis: Eliquis Code: Full Case disclosed with Attending Dr. Jeni Saldana PGY1 Disclaimer: Even though this this note was dictated by speech recognition and even though it was carefully revised there may still be minor errors in exchange engineer due to voice recognition software. Attending Provider Attestation/Addendum 78-year-old female with COPD, hypothyroidism, diabetes mellitus was admitted following a presyncopal episode. Associated with bradycardia and low blood pressure. The patient has atrial fibrillation. Blood pressure improved after fluid resuscitation. Patient was found to have lactic acidosis. Working diagnosis of diverticulitis/colitis, possible community-acquired pneumonia continue cardiac monitoring. Avoid negative chronotropic medications. Discussed with housestaff. I discussed with and supervised the resident physician who took care of this patient. I agree with the assessment and plan as above.
[2024-09-17 04:57] LABS: Lactate (Lactic Acid) 3.9 mMol/L (0.4-2.0)
[2024-09-17 05:02] LABS: Basophils # (Auto) 0.1 Thou/mm3 (0.0-0.2); Basophils % (Auto) 0 % (0-2.5); Eosinophils # (Auto) 0.0 Thou/mm3 (0.0-0.5); Eosinophils % (Auto) 0 % (0-10); Hematocrit 36.7 % (36.0-46.0); Hemoglobin 12.3 g/dL (12.0-16.0); Immature Granulocytes Auto 0.17 Thou/mm3 (0.00-0.00); Lymphocytes # (Auto) 0.6 Thou/mm3 (1.0-4.8); Lymphocytes % (Auto) 2 % (10-50); Mean Corpuscular HGB Conc 33.5 g/dl (31.0-37.0); Mean Corpuscular Hemoglobin 28.9 pg (25.0-35.0); Mean Corpuscular Volume 86 fL (80-100); Monocytes # (Auto) 1.6 Thou/mm3 (0.0-0.8); Monocytes % (Auto) 5 % (0-12); Neutrophils # (Auto) 30.1 Thou/mm3 (1.8-7.7); Neutrophils % (Auto) 92 % (37-80); Nucleated Red Blood Cell # 0.00 Thou/mm3 (0.00-0.00); Nucleated Red Blood Cell % 0 /100 WBC (0); Platelet Count 394 Thou/mm3 (140-440); RDW Standard Deviation 47.9 fL (36.4-46.3); Red Blood Count 4.25 Miln/mm3 (4.00-5.20); White Blood Count 32.6 Thou/mm3 (3.6-11.0)
[2024-09-17] MEDS: LACTULOSE SYRUP 20 GM/30 ML UDC PO (05:10)
[2024-09-17] MEDS: ONDANSETRON INJ 2 MG/ML INJ 2 ML 4 MG IVP ×2 (05:12→11:14)
--- NOTE | 2024-09-17 06:00 | EKG_ITS ---
[facility] Test Date: 2024-09-17 Pat Name: ADAM GARCIA Department: Room: - Gender: Female Operational Risk Consultant: : 1945 Requested By: Les Saldana Order Number: [id number] Reading MD: Les Saldana Measurements Intervals [employer] Rate: 83 P: CA: QRS: 2 QRSD: 80 T: 2 QT: 352 QTc: 415 Interpretive Statements ATRIAL FIBRILLATION MODERATE ST DEPRESSION [0.05+ mV ST DEPRESSION] Compared to ECG 09/16/2024 21:21:00 No significant changes /store/S0/[id number]/ecg/[id number].pdf
[2024-09-17 07:35] LABS: Alanine Aminotransferase 17 U/L (10-49); Albumin, Serum 4.2 gm/dL (3.4-4.8); Albumin/Globulin Ratio 2.2 (1.2-2.2); Alkaline Phosphatase 195 U/L (46-116); Anion Gap 13 (7-16); Aspartate Amino Transferase 23 U/L (0-34); BUN/Creatinine Ratio 10 Ratio (12-20); Bilirubin,Total 0.7 mg/dL (0.3-1.2); Blood Urea Nitrogen 12 mg/dL (9-23); Calcium 8.6 mg/dL (8.3-10.6); Calcium (Corrected) 8.6 mg/dL (8.5-10.1); Carbon Dioxide 20.1 mMol/L (20.0-31.0); Chloride 101 mMol/L (98-107); Creatinine (Component) 1.2 mg/dL (0.6-1.3); Estimated Creatinine Clearance 34.6 mL/min (>60); Globulin 1.9 gm/dL (2.3-3.5); Glucose 194 mg/dL (74-106); Osmolality,Calculated 272 (275-295); Potassium 4.1 mMol/L (3.4-5.1); Sodium 134 mMol/L (136-145); Total Protein 6.1 gm/dL (5.7-8.2); eGFR 46 See Note
[2024-09-17 07:55] LABS: Reflex Lactate? Y
[2024-09-17 07:59] LABS: Magnesium 2.2 mg/dL (1.6-2.6)
[2024-09-17] MEDS: HYDROcodone/APAP 5/325 TABLET 1 TAB PO (08:00)
[2024-09-17] MEDS: AZITHROMYCIN 250 MG TABLET 500 MG PO (08:55)
[2024-09-17] MEDS: APIXABAN 2.5 MG TABLET 5 MG PO ×2 (08:55→20:45)
[2024-09-17 08:58] LABS: Lactic Acid, 3 HR 2.6 mMol/L (0.4-2.0)
--- NOTE | 2024-09-17 09:01 | PC.NURSE ---
meal tray provided
--- NOTE | 2024-09-17 12:12 | PD.RESPRO ---
Documentation for date of: 09/17/24 Subjective Subjective Interval history: New overnight admission for pre-syncope and hypotension in the setting of colitis/diverticulitis.?Patient seen and examined at bedside this AM in the ED. Patient was sleeping, but easily arousable to voice. Patient reported that she was in the bathroom when she had felt dizzy, weak, and pre-syncopal but did not pass out not fall. Family member took her BP and it was noted to be 60/41 so patient was brought to the hospital. She received 0.5 mg atropine en route, uncertain what the patient's heart rate was. BP was low on arrival but responded to fluid resuscitation. EKG had showed afib with a rate of 85. Labs and vitals were reviewed.?Lactic acid downtrended to 2.6. BP has been trending up, so home diltiazem was resumed. WBC is uptrended from 14.5 to 32.6. Eliquis 5 mg BID home medication is continued. Patient follows Dr. Storm for afib and patient states that she was due for an echo. She currently denies any nausea, vomiting, chest pain, or shortness of breath. Patient is on 2-3 L O2 and not not utilize home O2. For now will continued with IV Zosyn and azithromycin to cover community acquired pneumonia and diverticulitis. No further complaints at this time. Review of systems otherwise negative except what is mentioned above. Exam Vital Signs Temp Pulse Resp BP Pulse Ox O2 Del Method O2 Flow Rate 99.1 F 881 H 19 159/94 H 100 Nasal Cannula 3 09/17/24 11:19 09/17/24 11:19 09/17/24 11:19 09/17/24 11:19 09/17/24 11:19 09/17/24 11:19 09/17/24 11:19 Narrative Exam Physical Exam General: Awake and in no acute distress. Elderly female conversational and non-toxic appearing. HEENT: Normocephalic, atraumatic, mucous membranes moist. Heart: Regular rate and rhythm, normal S1 and S2, no murmurs. Lungs: Clear to auscultation with no wheezing or crackles. Abdomen: Soft, mildly distended, nontender, positive bowel sounds. ?No guarding or rebound tenderness. Neurologic: Alert and oriented x3, no gross neurological deficit, and patient able to move all 4 extremities. Extremities: No edema. Skin: No rash or ecchymoses. Objective Labs 09/17/24 04:50 09/17/24 04:50 Labs: Laboratory Results - last 24 hr 09/16/24 09/16/24 09/17/24 21:27 23:05 00:40 WBC 14.5 H RBC 4.03 Hgb 11.6 L Hct 33.3 L MCV 83 MCH 28.8 MCHC 34.8 RDW Std Deviation 45.5 Plt Count 412 D Neut % (Auto) 58 Lymph % (Auto) 30 [place] % (Auto) 10 Eos % (Auto) 1 Baso % (Auto) 0 Neut # (Auto) 8.4 H Lymph # (Auto) 4.4 [place] # (Auto) 1.4 H Eos # (Auto) 0.2 Baso # (Auto) 0.1 Immature Gran # (Auto) 0.12 H Absolute Nucleated RBC 0.00 Immature Gran % 1 H Nucleated RBC % 0 PT 11.4 INR 1.0 APTT 21.6 L Sodium 132 L Potassium 2.6 L* Chloride 100 Carbon Dioxide 23.3 Anion Gap 9 BUN 9 Creatinine 1.1 Estim Creat Clear Calc 37.7 L eGFR 51 L BUN/Creatinine Ratio 8 L Glucose 129 H Calculated Osmolality 265 L Lactic Acid 2.1 H 3.3 H Calcium 9.5 Corrected Calcium 9.5 Magnesium 1.7 Total Bilirubin 0.5 AST 18 ALT 15 Alkaline Phosphatase 185 H Troponin I < 0.020 B-Natriuretic Peptide 182 H Total Protein 5.6 L Albumin 4.0 Globulin 1.6 L Albumin/Globulin Ratio 2.5 H Lipase 28 Procalcitonin 0.09 TSH 6.08 H Free T4 1.93 H Ur Collection Type Clean Catch Urine Color Lt-Yellow Urine Clarity Clear Urine pH 7.5 H Ur Specific [place] 1.017 Urine Protein 1+ A Urine Glucose (UA) Negative Urine Ketones Negative Urine Blood Negative Urine Nitrite Negative Urine Bilirubin Negative Urine Urobilinogen (Auto) Negative Ur Leukocyte Esterase Negative Urine RBC 1 Urine WBC 2 Ur Squamous Epith Cells < 1 Urine Bacteria None 09/17/24 09/17/24 09/17/24 01:45 04:50 08:51 WBC 32.6 H D RBC 4.25 Hgb 12.3 Hct 36.7 MCV 86 MCH 28.9 MCHC 33.5 RDW Std Deviation 47.9 H Plt Count 394 Neut % (Auto) 92 H Lymph % (Auto) 2 L [place] % (Auto) 5 Eos % (Auto) 0 Baso % (Auto) 0 Neut # (Auto) 30.1 H Lymph # (Auto) 0.6 L [place] # (Auto) 1.6 H Eos # (Auto) 0.0 Baso # (Auto) 0.1 Immature Gran # (Auto) 0.17 H Absolute Nucleated RBC 0.00 Immature Gran % 1 H Nucleated RBC % 0 PT INR APTT Sodium 134 L Potassium 4.1 D Chloride 101 Carbon Dioxide 20.1 Anion Gap 13 BUN 12 Creatinine 1.2 Estim Creat Clear Calc 34.6 L eGFR 46 L BUN/Creatinine Ratio 10 L Glucose 194 H D Calculated Osmolality 272 L Lactic Acid 3.9 H 2.6 H Calcium 8.6 Corrected Calcium 8.6 Magnesium 2.2 Total Bilirubin 0.7 AST 23 ALT 17 Alkaline Phosphatase 195 H Troponin I < 0.020 B-Natriuretic Peptide Total Protein 6.1 Albumin 4.2 Globulin 1.9 L Albumin/Globulin Ratio 2.2 Lipase Procalcitonin TSH Free T4 Ur Collection Type Urine Color Urine Clarity Urine pH Ur Specific [place] Urine Protein Urine Glucose (UA) Urine Ketones Urine Blood Urine Nitrite Urine Bilirubin Urine Urobilinogen (Auto) Ur Leukocyte Esterase Urine RBC Urine WBC Ur Squamous Epith Cells Urine Bacteria Quality Measures Quality Measures sepsis Current suspected stage: ruled out Possible source: GI tract/intra-abdominal Blood cultures ordered: yes Antibiotic ordered: Yes Advance care planning discussed with:: patient Assessment & Plan Assessment Current Active Medications: Generic Name Dose Route Start Last Admin Trade Name Freq PRN Reason Stop Dose Admin Acetaminophen 650 mg 09/17/24 04:17 Acetaminophen 325 Mg Tablet PO 10/17/24 04:16 Q6H PRN Fever >100.4 Acetaminophen 650 mg 09/17/24 04:17 Acetaminophen 325 Mg Tablet PO 10/17/24 04:16 Q6H PRN PAIN SCALE 1-3 (mild Hydrocodone Bitart/Acetaminophen 1 tab 09/17/24 04:17 09/17/24 08:00 Hydrocodone/Apap 5/325 Tablet PO 09/22/24 04:16 1 tab Q4HR PRN Administration PAIN SCALE 4-6 (Moderate Albuterol/Ipratropium 3 ml 09/17/24 04:45 Albuterol/Ipratropium (Duoneb) Rt Sandra 3 Ml Nebu INH 10/17/24 04:44 Q6H PRN SHORTNESS OF BREATH OR WHEEZE Apixaban 5 mg 09/17/24 09:00 09/17/24 08:55 Apixaban 2.5 Mg Tablet PO 10/17/24 08:59 5 mg BID DENISE Administration Azithromycin 500 mg 09/17/24 09:00 09/17/24 08:55 Azithromycin 250 Mg Tablet PO 09/24/24 08:59 500 mg QDAY DENISE Administration Dextrose 25 ml 09/17/24 04:22 Dextrose 50%-Water Inj 50 Ml Syringe IV 10/17/24 04:21 Q15MIN PRN BG 50-70 responsive npo pt Dextrose 50 ml 09/17/24 04:22 Dextrose 50%-Water Inj 50 Ml Syringe IV 10/17/24 04:21 Q15MIN PRN BG <50 OR BG <70 & pt unresponsive Glucagon 1 mg 09/17/24 04:22 Glucagon Inj 1 Mg Vial IM Q15MIN PRN BG <70, and no IV access Piperacillin/Tazobactam/Dextrose 3.375 gm in 50 mls @ 100 mls/hr 09/17/24 08:00 09/17/24 08:48 Zosyn IV 09/24/24 07:59 Infused Q6HR DENISE Infusion Insulin Human Lispro 0 unit 09/17/24 07:30 09/17/24 11:21 Insulin Lispro (Admelog) 1 Unit/0.01 Ml Unit SC 10/17/24 07:29 Not Given AC [facility] Protocol Ondansetron HCl 4 mg 09/17/24 04:17 09/17/24 11:14 Ondansetron Inj 2 Mg/Ml Inj 2 Ml IVP 10/17/24 04:16 4 mg Q6H PRN Administration NAUSEA OR VOMITING Protocol Plan 78-year-old female with past medical history of A-fib (on diltiazem and Eliquis), hypertension, COPD/asthma, and hypothyroidism was admitted to the hospital on 09/17/2024 for diverticulitis/colitis and presyncopal episode. #Diverticulitis/colitis #Lactic acidosis #Constipation Patient has been having bowel movements, but has been having some abdominal pain along with abdominal distention more than she previously had. Chest/abdomen/pelvis CTA which showed colitis pattern which is concerning for mild diverticulitis involving the descending colon and rectosigmoid colon with large amount of stool throughout the colon, but no perforations or bowel obstruction noted. Lactic acid up trended to 3.3 could be in the setting of hypotension versus infection WBC 14.5->32.6 Patient got IV fluids in the ED Could be related to patient's antibiotic regimen Plan: -Continue IV Zosyn -Blood cultures pending -Trend lactic acid -Consider GI consult #Presyncope #Hx of syncopal episode #Hypotension #Bradycardia #Hypokalemia #History of A-fib Patient stated that around 2 weeks ago she had a syncopal episode when she was in the bathroom which resulted in her ankle fracture. Patient does have a history of A-fib for which she takes diltiazem. Patient today was having low blood pressure 60/40 with a low heart rate and she was feeling dizzy as well. Patient has had no other falls Patient's potassium initially was 2.6 Syncopal episode could be in the setting of medication versus arrhythmia in the setting of hypokalemia with a history of A-fib. EKG showed A-fib with heart rate of 85 Patient got 80 meq of potassium in the ED and 2 g of magnesium [id number] of 5 points indicating 7.2% stroke risk per year HAS-BLED 3 points indicating high risk of major bleeding. Plan: -Continue Eliquis 5 mg BID -Restarted home diltiazem 180 mg qday -Echo ordered -Keep potassium and magnesium above 4 and 2 respectively to avoid any further arrhythmias -Consider consulting cardiology if patient develops again bradycardia or goes into unstable A-fib. -Orthostatic vitals -Physical therapy #Community acquired pneumonia Patient's chest x-ray that show left base pneumonia Patient has been having a cough Plan: -Continue azithromycin 500 mg daily, discontinue if low suspicion for pneumonia -DuoNebs as needed every 6 hours #History of COPD/asthma #History of hypothyroidism Patient's T4 was 1.93 and TSH 6.08 Patient reports recent increase in thyroid medications -Pending med rec #Diabetes mellitus type 2 Patient's last A1c was 6.2 on 06/2024 ISS and hypoglycemia protocol ordered Disposition: Patient in telemetry for Presyncope and Colitis/Diverticulitis. Diet: Cardiac/Carb cons GI prophylaxis: not indicated DVT prophylaxis: Eliquis Code: Full Patient plan of care was discussed with the attending physician, Dr. Baez. Krystal Lazo, PGY-2 Attending Provider Attestation/Addendum I have discussed and was present for the essential components of the history, physical examination, diagnosis, and treatment plan with the resident. I agree with the patient's care as documented by the resident and amended herein by me. Benjamin Baez, DO. Patient seen and evaluated this AM. No acute events overnight, vital signs stable, patient afebrile, WBC elevated at 32, patient denies any diarrhea, last bowel movement yesterday. Her abdomen is distended and firm however only mild pain in her lower abdomen to her left lower quadrant. Lactate has down trended to 0.6, will continue Zosyn and azithromycin for diverticulitis and pneumonia, will hold antihypertensives and rate control medications for now however will restart once BP more stable. Will continue to monitor closely while she is here. Although this document has been carefully reviewed, there may still be some phonetic and other typographical errors. These errors are purely grammatical due to imperfections in the software program and should not be construed in any way to compromise the substance of the patient's medical care during this visit.
--- NOTE | 2024-09-17 12:20 | PC.NURSE ---
pt helped up to bedside camode and had med bowel movement and stated that she feels better. pt tolerated well getting up no dizziness noted.
[2024-09-17] MEDS: DILTIAZEM CD 180 MG CAPCR PO (16:11)
--- NOTE | 2024-09-17 17:52 | PC.NURSE ---
pt unable to stand alone to get bp while standing, no dizziness noted when helped to bedside camode earlier other orthostatic vs placed in chart.
[2024-09-17] MEDS: ATORVASTATIN CALCIUM 10 MG TABLET PO (20:45)
--- NOTE | 2024-09-17 22:46 | PC.NURSE ---
has medication list at home, will bring in tomorrow.
[2024-09-17] MEDS: PANTOPRAZOLE 20 MG TABLET 40 MG PO (22:48)
[2024-09-18] VITALS (9 sets, daily range): BP systolic 113–139; BP diastolic 75–85; PULSE 75–99; RESP 17–21; TEMP 36.1–36.6; O2SAT 94–99; BMI 27.8
[2024-09-18] MEDS: PIPER/TAZO 3.375 GM PREMIX 3.375 GM/50 ML BAG IV ×5 (00:05→23:46)
--- NOTE | 2024-09-18 04:26 | ECHO_ITS ---
Transthoracic Echo Report Ht (in): 62 Wt (lb): 152 Exam Location: Echo Lab Status: Inpatient Tunnel Worker: Jenny Albright Indications: Procedure Performed: BP: 139 / 79 HR: 99 MEASUREMENTS (Male / Female) Normal Values 2D ECHO LV Diastolic Diameter PLAX 3.5 cm 4.2 - 5.9 / 3.9 - 5.3 cm LV Systolic Diameter PLAX 2.3 cm IVS Diastolic Thickness 1.1 cm 0.6 - 1.0 / 0.6 - 0.9 cm LVPW Diastolic Thickness 1.4 cm 0.6 - 1.0 / 0.6 - 0.9 cm LV Relative Wall Thickness 0.7 LVOT Diameter 1.9 cm Ascending Aorta Diameter 2.9 cm DOPPLER AV Peak Velocity 132.0 cm/s AV Peak Gradient 7.0 mmHg LVOT Peak Velocity 73.1 cm/s LVOT Peak Gradient 2.1 mmHg AV Area Cont Eq pk 1.6 cm? TR Peak Velocity 225.0 cm/s TR Peak Gradient 20.3 mmHg PV Peak Velocity 137.3 cm/s PV Peak Gradient 7.5 mmHg FINDINGS Left Ventricle Normal left ventricular size and systolic function with no obvious regional wall motion abnormalities. Mild left ventricular hypertrophy. Normal left ventricular diastolic filling pattern for age. The ejection fraction is visually estimated at 60 %. Right Ventricle The right ventricle is mildly enlarged. The estimated right ventricular systolic pressure 20mmHg. Left Atrium The left atrium appears severely enlarged. Right Atrium The right atrium appears severely enlarged. Atrial Septum The interatrial septum appears normal with no evidence of a shunt. Aorta The aorta is normal by two-dimensional, color flow and Doppler interrogation. Mitral Valve Mild mitral annular calcification. There is trace mitral regurgitation. Aortic Valve The aortic valve is trileaflet and normal by two-dimensional, color flow and Doppler interrogation. There is trace aortic valve regurgitation. Tricuspid Valve The tricuspid valve is normal by two-dimensional, color flow and Doppler interrogation. There is mild to moderate tricuspid regurgitation. Pulmonic Valve The pulmonic valve is not well visualized. There is no significant pulmonic valve regurgitation. Vessels The pulmonary artery appears normal. The inferior vena cava pulmonary and hepatic veins appear normal. Pericardium The pericardium is normal by two-dimensional imaging. There is no significant pericardial effusion. CONCLUSIONS Indications: Syncopal Episode Normal LV Size. Mild LVH. Estimated EF 60%. Mild RVE. RVSP 20mmHg. Severe MARIO. Trace MR. Mild MAC. Trace AI. Mild to Moderate TR. No Pericardial Effusion. Nataliia Storm (Electronically Signed) Final Date: 19 September 2024 11:50
[2024-09-18 05:56] LABS: Lactate (Lactic Acid) 1.3 mMol/L (0.4-2.0)
[2024-09-18 06:00] LABS: Basophils # (Auto) 0.1 Thou/mm3 (0.0-0.2); Basophils % (Auto) 0 % (0-2.5); Eosinophils # (Auto) 0.0 Thou/mm3 (0.0-0.5); Eosinophils % (Auto) 0 % (0-10); Hematocrit 32.4 % (36.0-46.0); Hemoglobin 10.9 g/dL (12.0-16.0); Immature Granulocytes Auto 0.39 Thou/mm3 (0.00-0.00); Lymphocytes # (Auto) 1.2 Thou/mm3 (1.0-4.8); Lymphocytes % (Auto) 4 % (10-50); Mean Corpuscular HGB Conc 33.6 g/dl (31.0-37.0); Mean Corpuscular Hemoglobin 28.6 pg (25.0-35.0); Mean Corpuscular Volume 85 fL (80-100); Monocytes # (Auto) 1.7 Thou/mm3 (0.0-0.8); Monocytes % (Auto) 5 % (0-12); Neutrophils # (Auto) 27.3 Thou/mm3 (1.8-7.7); Neutrophils % (Auto) 89 % (37-80); Nucleated Red Blood Cell # 0.00 Thou/mm3 (0.00-0.00); Nucleated Red Blood Cell % 0 /100 WBC (0); Platelet Count 314 Thou/mm3 (140-440); RDW Standard Deviation 46.9 fL (36.4-46.3); Red Blood Count 3.81 Miln/mm3 (4.00-5.20); White Blood Count 30.6 Thou/mm3 (3.6-11.0)
[2024-09-18 06:53] LABS: Alanine Aminotransferase 18 U/L (10-49); Albumin, Serum 3.5 gm/dL (3.4-4.8); Albumin/Globulin Ratio 1.7 (1.2-2.2); Alkaline Phosphatase 136 U/L (46-116); Anion Gap 9 (7-16); Aspartate Amino Transferase 20 U/L (0-34); BUN/Creatinine Ratio 9 Ratio (12-20); Bilirubin,Total 0.9 mg/dL (0.3-1.2); Blood Urea Nitrogen 8 mg/dL (9-23); Calcium 8.7 mg/dL (8.3-10.6); Calcium (Corrected) 9.1 mg/dL (8.5-10.1); Carbon Dioxide 22.3 mMol/L (20.0-31.0); Chloride 99 mMol/L (98-107); Creatinine (Component) 0.9 mg/dL (0.6-1.3); Estimated Creatinine Clearance 48.0 mL/min (>60); Globulin 2.1 gm/dL (2.3-3.5); Glucose 128 mg/dL (74-106); Magnesium 1.6 mg/dL (1.6-2.6); Osmolality,Calculated 261 (275-295); Potassium 3.4 mMol/L (3.4-5.1); Sodium 130 mMol/L (136-145); Total Protein 5.6 gm/dL (5.7-8.2); eGFR > 60 See Note
[2024-09-18] MEDS: DILTIAZEM CD 180 MG CAPCR PO (08:28)
[2024-09-18] MEDS: APIXABAN 2.5 MG TABLET 5 MG PO ×2 (08:29→20:23)
[2024-09-18] MEDS: AZITHROMYCIN 250 MG TABLET 500 MG PO (08:29)
--- NOTE | 2024-09-18 10:13 | PC.SS ---
FARM SERVICE ADVISER conducted bedside contact with the patient conduct initial assessment and to discuss discharge planning.? Patient confirmed demographic information.? Patient resides at home with spouse, Leobardo Merino; .? Patient currently utilizing a wheelchair to assist with mobility following recent surgery to broken ankle.? Prior to injury patient was able to ambulate independently.? Patient does not utilize home oxygen.? Currently utilizing 2.5L of oxygen.? Patient describes ability to complete ADL?s independently.? Patient identified spouse, Leobardo Merino; as medical surrogate decision maker. ?Patient?s PCP is Dr. Luna.? Patient does not participate with dialysis.? Patient?s adventure guide is Dr. Ovalles.? Patient utilizes [facility] for medication services.? Plan is for the patient to return home at the time of discharge.? Patient confirmed access to basic utilities and provisions.? If home health recommended no preferred agency identified.? Family to provide transportation on behalf of the patient. ?No further discharge needs identified by the patient.? No further intervention required at this time, social media intern will be available to address any further concerns.? Next of Kin: Leobardo Merino D/C Plan: Home
--- NOTE | 2024-09-18 10:15 | PC.SS ---
Bedside nurse informed of need to conduct room air evaluation to determine if patient will require home oxygen.
[2024-09-18] MEDS: ONDANSETRON INJ 2 MG/ML INJ 2 ML 4 MG IVP (12:19)
[2024-09-18] MEDS: PANTOPRAZOLE 20 MG TABLET 40 MG PO (14:52)
--- NOTE | 2024-09-18 15:36 | ESPR_ITS ---
Documentation for date of: 09/18/24 Subjective Subjective Interval history: No acute events overnight.?Patient seen and examined at bedside this AM.?Patient is sitting up in bed, report that she is feeling better today. Labs and vitals were reviewed.?There were no fevers overnight. Labs showed that WBC downtrended slightly, but are still elevated at 30.6. Creatinine improved. Lactic acid has normalized. Continuing IV Zosyn for diverticulitis/colitis for now. Also awaiting echo to investigate pre-syncopal episode. Orthostatics were negative. If blood cultures negative at 48 hours, patient most likely can discharge home with home health. No further complaints at this time. Review of systems otherwise negative except what is mentioned above. Exam Vital Signs Temp Pulse Resp BP Pulse Ox O2 Del Method O2 Flow Rate 97.4 F 88 18 139/81 H 94 L Nasal Cannula 2 09/18/24 12:00 09/18/24 12:00 09/18/24 12:00 09/18/24 12:00 09/18/24 12:00 09/18/24 12:09/18/24 12:00 Narrative Exam Physical Exam General: Awake and in no acute distress. Elderly female conversational and non- toxic appearing. HEENT: Normocephalic, atraumatic, mucous membranes moist. Heart: Regular rate and rhythm, normal S1 and S2, no murmurs. Lungs: Clear to auscultation with no wheezing or crackles. Abdomen: Soft, mildly distended, nontender, positive bowel sounds. ?No guarding or rebound tenderness. Neurologic: Alert and oriented x3, no gross neurological deficit, and patient able to move all 4 extremities. Extremities: No edema. Skin: No rash or ecchymoses. Objective Labs 09/18/24 05:31 09/18/24 05:31 Labs: Laboratory Results - last 24 hr 09/18/24 09/18/24 05:31 05:45 WBC 30.6 H RBC 3.81 L Hgb 10.9 L Hct 32.4 L MCV 85 MCH 28.6 MCHC 33.6 RDW Std Deviation 46.9 H Plt Count 314 D Neut % (Auto) 89 H Lymph % (Auto) 4 L [place] % (Auto) 5 Eos % (Auto) 0 Baso % (Auto) 0 Neut # (Auto) 27.3 H Lymph # (Auto) 1.2 [place] # (Auto) 1.7 H Eos # (Auto) 0.0 Baso # (Auto) 0.1 Immature Gran # (Auto) 0.39 H Absolute Nucleated RBC 0.00 Immature Gran % 1 H Nucleated RBC % 0 Sodium 130 L Potassium 3.4 D Chloride 99 Carbon Dioxide 22.3 Anion Gap 9 BUN 8 L Creatinine 0.9 Estim Creat Clear Calc 48.0 L eGFR > 60 BUN/Creatinine Ratio 9 L Glucose 128 H D Calculated Osmolality 261 L Lactic Acid 1.3 Calcium 8.7 Corrected Calcium 9.1 Magnesium 1.6 Total Bilirubin 0.9 AST 20 ALT 18 Alkaline Phosphatase 136 H D Total Protein 5.6 L Albumin 3.5 D Globulin 2.1 L Albumin/Globulin Ratio 1.7 Quality Measures Quality Measures sepsis Current suspected stage: ruled out Possible source: GI tract/intra- abdominal Blood cultures ordered: yes Antibiotic ordered: Yes Advance care planning discussed with:: patient Assessment & Plan Assessment Current Active Medications: Generic Name Dose Route Start Last Admin Trade Name Freq PRN Reason Stop Dose Admin Acetaminophen 650 mg 09/17/24 04:17 Acetaminophen 325 Mg Tablet PO 10/17/24 04:16 Q6H PRN Fever >100.4 Acetaminophen 650 mg 09/17/24 04:17 Acetaminophen 325 Mg Tablet PO 10/17/24 04:16 Q6H PRN PAIN SCALE 1-3 (mild Hydrocodone Bitart/Acetaminophen 1 tab 09/17/24 04:17 09/17/24 08:00 Hydrocodone/Apap 5/325 Tablet PO 09/22/24 04:16 1 tab Q4HR PRN Administration PAIN SCALE 4-6 (Moderate Albuterol/Ipratropium 3 ml 09/17/24 04:45 Albuterol/Ipratropium (Duoneb) Rt Sandra 3 Ml Nebu INH 10/17/24 04:44 Q6H PRN SHORTNESS OF BREATH OR WHEEZE Apixaban 5 mg 09/17/24 09:00 09/18/24 08:29 Apixaban 2.5 Mg Tablet PO 10/17/24 08:59 5 mg BID DENISE Administration Atorvastatin Calcium 10 mg 09/17/24 21:00 09/17/24 20:45 Atorvastatin Calcium 10 Mg Tablet PO 10/17/24 20:59 10 mg HS DENISE Administration Azithromycin 500 mg 09/17/24 09:00 09/18/24 08:29 Azithromycin 250 Mg Tablet PO 09/24/24 08:59 500 mg QDAY DENISE Administration Dextrose 25 ml 09/17/24 04:22 Dextrose 50%-Water Inj 50 Ml Syringe IV 10/17/24 04:21 Q15MIN PRN BG 50-70 responsive npo pt Dextrose 50 ml 09/17/24 04:22 Dextrose 50%-Water Inj 50 Ml Syringe IV 10/17/24 04:21 Q15MIN PRN BG <50 OR BG <70 & pt unresponsive Diltiazem HCl 180 mg 09/17/24 14:15 09/18/24 08:28 Diltiazem Cd 180 Mg Capcr PO 10/17/24 14:14 180 mg QDAY DENISE Administration Glucagon 1 mg 09/17/24 04:22 Glucagon Inj 1 Mg Vial IM Q15MIN PRN BG <70, and no IV access Piperacillin/Tazobactam/Dextrose 3.375 gm in 50 mls @ 100 mls/hr 09/17/24 08:00 09/18/24 12:20 Zosyn IV 09/24/24 07:59 100 mls/hr Q6HR DENISE Administration Insulin Human Lispro 0 unit 09/17/24 07:30 09/18/24 11:42 Insulin Lispro (Admelog) 1 Unit/0.01 Ml Unit SC 10/17/24 07:29 Not Given AC [facility] Protocol Ondansetron HCl 4 mg 09/17/24 04:17 09/18/24 12:19 Ondansetron Inj 2 Mg/Ml Inj 2 Ml IVP 10/17/24 04:16 4 mg Q6H PRN Administration NAUSEA OR VOMITING Protocol Pantoprazole Sodium 40 mg 09/18/24 15:00 09/18/24 14:52 Pantoprazole 20 Mg Tablet PO 10/18/24 14:59 40 mg QDAY@1500 DENISE Administration Plan 78-year-old female with past medical history of A-fib (on diltiazem and Eliquis), hypertension, COPD/asthma, and hypothyroidism was admitted to the hospital on 09/17/2024 for diverticulitis/colitis and presyncopal episode. #Diverticulitis/colitis #Lactic acidosis - resolved Patient has been having bowel movements, but has been having some abdominal pain along with abdominal distention more than she previously had. Chest/abdomen/pelvis CTA which showed colitis pattern which is concerning for mild diverticulitis involving the descending colon and rectosigmoid colon with large amount of stool throughout the colon, but no perforations or bowel obstruction noted. Lactic acid up trended to 3.3 could be in the setting of hypotension versus infection, now normalized WBC 14.5->32.6 Patient got IV fluids in the ED Plan: -Continue IV Zosyn -Blood cultures pending, if negative after 48 hours may get ready for discharge #Presyncope #Hx of syncopal episode #Hypotension #Bradycardia #Hypokalemia #History of A-fib Patient stated that around 2 weeks ago she had a syncopal episode when she was in the bathroom which resulted in her ankle fracture. Patient does have a history of A-fib for which she takes diltiazem. Patient today was having low blood pressure 60/40 with a low heart rate and she was feeling dizzy as well. Patient has had no other falls Patient's potassium initially was 2.6 Syncopal episode could be in the setting of medication versus arrhythmia in the setting of hypokalemia with a history of A-fib. May also be in setting of GI infection EKG showed A-fib with heart rate of 85 Patient got 80 meq of potassium in the ED and 2 g of magnesium [id number] of 5 points indicating 7.2% stroke risk per year HAS-BLED 3 points indicating high risk of major bleeding. Orthostatic vitals were negative Physical therapy recommended home health Plan: -Continue Eliquis 5 mg BID -Continue home diltiazem 180 mg qday -Echo ordered, pending -Keep potassium and magnesium above 4 and 2 respectively to avoid any further arrhythmias -Consider consulting cardiology if patient develops again bradycardia or goes into unstable A-fib. #Community acquired pneumonia Patient's chest x-ray that show left base pneumonia Patient has been having a cough Plan: -Continue azithromycin 500 mg daily, discontinue after Day 3 -DuoNebs as needed every 6 hours #History of COPD/asthma #History of hypothyroidism Patient's T4 was 1.93 and TSH 6.08 Patient reports recent increase in thyroid medications -Continue home levothyroxine 100 mcg qday #Diabetes mellitus type 2 Patient's last A1c was 6.2 on 06/2024 -Continue ISS and hypoglycemia protocol Disposition: Patient in telemetry for Presyncope and Colitis/Diverticulitis. Diet: Cardiac/Carb cons GI prophylaxis: Pantoprazole PO DVT prophylaxis: Eliquis Code: Full Patient plan of care was discussed with the attending physician, Dr. Baez. Krystal Lazo, PGY-2 Attending Provider Attestation/Addendum I have discussed and was present for the essential components of the history, physical examination, diagnosis, and treatment plan with the resident. I agree with the patient's care as documented by the resident and amended herein by me. Benjamin Baez, DO. Patient seen and evaluated this AM. No acute events overnight, vital signs stable, patient afebrile, WBC is down trended to 30, hemoglobin 11. Will continue on Zosyn for now for diverticulitis, likely transition to oral antibiotics tomorrow and discharge home. Echo still pending, will replete electrolytes as needed, blood cultures negative, urine cultures pending, home health physical therapy has been ordered. Will continue monitor closely however patient is much improved today. Although this document has been carefully reviewed, there may still be some phonetic and other typographical errors. These errors are purely grammatical due to imperfections in the software program and should not be construed in any way to compromise the substance of the patient's medical care during this visit.
--- NOTE | 2024-09-18 17:29 | PC.PT ---
PT eval only. Patient can transfer to bedside commode with staff assist. Patient is Non-weightbearing on RLE.
[2024-09-18] MEDS: ATORVASTATIN CALCIUM 10 MG TABLET PO (20:23)
[2024-09-19] VITALS: BP 122/82; PULSE 66; PULSE 78; RESP 16; TEMP 36.1; O2SAT 99
[2024-09-19 04:00] VITALS: BP 131/85; PULSE 70; PULSE 74; RESP 20; TEMP 36.1; O2SAT 98
[2024-09-19] MEDS: PIPER/TAZO 3.375 GM PREMIX 3.375 GM/50 ML BAG IV ×2 (05:20→11:49)
[2024-09-19] MEDS: LEVOTHYROXINE SODIUM 100 MCG TABLET PO (05:36)
[2024-09-19 06:04] LABS: Basophils # (Auto) 0.0 Thou/mm3 (0.0-0.2); Basophils % (Auto) 0 % (0-2.5); Eosinophils # (Auto) 0.0 Thou/mm3 (0.0-0.5); Eosinophils % (Auto) 0 % (0-10); Hematocrit 28.2 % (36.0-46.0); Hemoglobin 9.9 g/dL (12.0-16.0); Immature Granulocytes Auto 0.16 Thou/mm3 (0.00-0.00); Lymphocytes # (Auto) 1.3 Thou/mm3 (1.0-4.8); Lymphocytes % (Auto) 6 % (10-50); Mean Corpuscular HGB Conc 35.1 g/dl (31.0-37.0); Mean Corpuscular Hemoglobin 28.9 pg (25.0-35.0); Mean Corpuscular Volume 83 fL (80-100); Monocytes # (Auto) 1.5 Thou/mm3 (0.0-0.8); Monocytes % (Auto) 7 % (0-12); Neutrophils # (Auto) 18.6 Thou/mm3 (1.8-7.7); Neutrophils % (Auto) 86 % (37-80); Nucleated Red Blood Cell # 0.00 Thou/mm3 (0.00-0.00); Nucleated Red Blood Cell % 0 /100 WBC (0); Platelet Count 289 Thou/mm3 (140-440); RDW Standard Deviation 45.3 fL (36.4-46.3); Red Blood Count 3.42 Miln/mm3 (4.00-5.20); White Blood Count 21.7 Thou/mm3 (3.6-11.0)
[2024-09-19 06:31] LABS: Alanine Aminotransferase 14 U/L (10-49); Albumin, Serum 3.5 gm/dL (3.4-4.8); Albumin/Globulin Ratio 1.8 (1.2-2.2); Alkaline Phosphatase 130 U/L (46-116); Anion Gap 8 (7-16); Aspartate Amino Transferase 18 U/L (0-34); BUN/Creatinine Ratio 9 Ratio (12-20); Bilirubin,Total 0.8 mg/dL (0.3-1.2); Blood Urea Nitrogen 7 mg/dL (9-23); Calcium 8.7 mg/dL (8.3-10.6); Calcium (Corrected) 9.1 mg/dL (8.5-10.1); Carbon Dioxide 25.0 mMol/L (20.0-31.0); Chloride 98 mMol/L (98-107); Creatinine (Component) 0.8 mg/dL (0.6-1.3); Estimated Creatinine Clearance 55.2 mL/min (>60); Globulin 2.0 gm/dL (2.3-3.5); Glucose 93 mg/dL (74-106); Magnesium 1.6 mg/dL (1.6-2.6); Osmolality,Calculated 260 (275-295); Potassium 3.4 mMol/L (3.4-5.1); Sodium 131 mMol/L (136-145); Total Protein 5.5 gm/dL (5.7-8.2); eGFR > 60 See Note
[2024-09-19 08:00] VITALS: BP 121/83; PULSE 88; PULSE 93; RESP 17; TEMP 36.4; O2SAT 96
[2024-09-19 08:33] VITALS: BP 121/83; PULSE 88
[2024-09-19] MEDS: AZITHROMYCIN 250 MG TABLET 500 MG PO (08:33)
[2024-09-19] MEDS: APIXABAN 2.5 MG TABLET 5 MG PO (08:33)
[2024-09-19] MEDS: DILTIAZEM CD 180 MG CAPCR PO (08:33)
[2024-09-19 12:00] VITALS: BP 136/88; PULSE 76; PULSE 95; RESP 18; TEMP 36.7; O2SAT 95
[2024-09-19] MEDS: PANTOPRAZOLE 20 MG TABLET 40 MG PO (15:24)
--- NOTE | 2024-09-19 15:42 | PD.RESDS ---
Planned Discharge Date 09/19/24 DS: Providers Provider Date of admission: 09/17/24 04:17 Primary care physician: Sergio Luna MD Admitting Provider: Lorenzo Ngo MD Attending Provider on Admission: Lorenzo Ngo MD Consults: 09/17/24 17:16 Referral Physical Therapy Routine Comment: Physician Instructions: Instructions: non-weight bearing to left lower extremity per surgeon that fixed left ankle fracture. Attending Provider on DC: RESIDENT Walter Discharging Provider: RESIDENT Walter Hospital Course Hospital Course Hospital course: No acute events overnight.?Patient seen and examined at bedside this AM.?Patient is sitting up in bed, report that she is feeling better today. Labs and vitals were reviewed.?There were no fevers overnight. Labs showed that WBC downtrended slightly, but are still elevated at 30.6. Creatinine improved. Lactic acid has normalized. Continuing IV Zosyn for diverticulitis/colitis for now. Also awaiting echo to investigate pre-syncopal episode. Orthostatics were negative. If blood cultures negative at 48 hours, patient most likely can discharge home with home health. No further complaints at this time. Review of systems otherwise negative except what is mentioned above. Time Spent with Patient Time attestation: Total time spent providing and/or coordinating discharge services: Home Health Home Health Referral Orders: 09/18/24 14:21 Home Health Referral Routine Reason For Exam: debility Home-Bound The patient must either because of illness or injury, need the aid of supportive devices such as crutches, canes, wheelchairs, and walkers; the use of special transportation; or the assistance of another person in order to leave their place of residence; OR have a condition such that leaving his or her home is medically contraindicated. In addition, the patient also meets the following criteria: patient is normally unable to leave the home and leaving home requires considerable taxing effort. Addendum to Home Health Certification Practitioner's Certification: I certify that the patient has been under my care in the hospital and the care of attending physician (see below). We had a ryan-vi-rkpe encounter on (see date below). My clinical findings indicate that the patient is home bound per the above criteria and the Home Health Services noted in these orders are medically necessary. The primary reason for the [id number]-[id number] encounter is related to the fact that the patient requires home health services. Date Certifying Bfat-pe-Ifrx Physician Encounter: 09/17/24 Physician's Name who will Assume Oversight for HH Services: Sergio Luna Physician's Phone No.who will Assume Oversight [facility] Service: [facility] Resources: No PT to Evaluate: Yes PT to evaluate and provide a treatmnet plan to increase patient's mobility and strength. Wound Care: No IV Therapy: No Discontinue PICC Line Once Treatment Complete: No RN Safety Evaluation: Yes RN to evaluate and create a plan of care that will produce positive outcomes. Palliative Treatment: No Palliative treatment and evaluate the need for hospice. Home Health Aide - Personal Care: No Home Health Aide to assist with any ADL's. 09/19/24 08:51 Home Health Referral Routine Reason For Exam: debility Home-Bound The patient must either because of illness or injury, need the aid of supportive devices such as crutches, canes, wheelchairs, and walkers; the use of special transportation; or the assistance of another person in order to leave their place of residence; OR have a condition such that leaving his or her home is medically contraindicated. In addition, the patient also meets the following criteria: patient is normally unable to leave the home and leaving home requires considerable taxing effort. Addendum to Home Health Certification Practitioner's Certification: I certify that the patient has been under my care in the hospital and the care of attending physician (see below). We had a gpel-ut-tqoc encounter on (see date below). My clinical findings indicate that the patient is home bound per the above criteria and the Home Health Services noted in these orders are medically necessary. The primary reason for the [id number]-af-[id number] encounter is related to the fact that the patient requires home health services. Date Certifying Spxk-zn-Nxex Physician Encounter: 09/17/24 Physician's Name who will Assume Oversight for HH Services: Isaíasrk Jeremy Physician's Phone No.who will Assume Oversight [facility] Service: TOWER WATCHMAN - Community Resources: No PT to Evaluate: Yes PT to evaluate and provide a treatmnet plan to increase patient's mobility and strength. Wound Care: No IV Therapy: No Discontinue PICC Line Once Treatment Complete: No RN Safety Evaluation: Yes RN to evaluate and create a plan of care that will produce positive outcomes. Palliative Treatment: No Palliative treatment and evaluate the need for hospice. Home Health Aide - Personal Care: No Home Health Aide to assist with any ADL's. Exam Vital Signs Temp Pulse Resp BP Pulse Ox O2 Del Method O2 Flow Rate 98.1 F 76 18 136/88 H 95 Room Air 3 09/19/24 12:00 09/19/24 12:00 09/19/24 12:00 09/19/24 12:00 09/19/24 12:00 09/19/24 12:00 09/18/24 19:00 Discharge Plan Plan Patient Disposition: Home w/HOME HEALTH Patient condition on transfer: Stable Care Plan Goals: -Please continue all home medication as prescribed. -Continue Augmentin for antibiotics for 7 more days. -Please follow up with your primary care provider within one week of discharge -If your symptoms worsen,please seek immediate medical attention and return to your nearest emergency room -If you do not have a primary care provider, you may follow up at the [facility] at [address], [place] [address], Prescriptions/Referrals Prescriptions/Med Rec: New amoxicillin-pot clavulanate 875-125 mg tablet 1 tab PO BID Qty: 14 0RF Rx Instructions: 1 tab 875/125mg PO bid for diverticulitis Continued omeprazole 40 MG capsule,delayed release(DR/EC) 40 mg PO QDAY Qty: 0 Benazepril Hcl * (LOTENSIN *) 10 MG tablet 10 mg PO QDAY Qty: 0 Levothyroxine * (SYNTHROID *) 88 mcg tablet 100 mcg PO ACBR Qty: 0 diltiazem HCl [DILT-XR] 180 mg Capsule,Ext.Rel 24h Degradable 180 mg PO QDAY atorvastatin 10 mg tablet 10 mg PO HS hydrochlorothiazide 12.5 mg capsule 12.5 mg PO QDAY Patient Comments: TAKE ONE CAPSULE BY MOUTH EVERY MORNING A DIURETIC calcitriol 0.25 mcg capsule See Rx Instructions .ROUTE .COMPLEX Patient Comments: TAKE ONE CAPSULE BY MOUTH TWICE A WEEK Rx Instructions: 0.25 mcg orally DAILY FOR 5 DAYS A WEEK Eliquis 5 mg tablet 5 mg PO QDAY Patient Comments: TAKE ONE TABLET BY MOUTH TWICE DAILY Arnuity Ellipta 100 mcg/actuation blister with device 1 inh inhalation QDAY cetirizine [Zyrtec] 10 mg tablet 10 mg PO QDAY PRN (Reason: allergy symptoms) ferrous sulfate [FeroSul] 325 mg (65 mg iron) tablet 325 mg PO QDAY Patient Comments: TAKE ONE TABLET BY MOUTH EVERY DAY VITAMIN WITH ORANGE JUICE Referrals: Sergio Luna MD [Primary Care Provider] - Patient/Caregiver Discharge Instructions Discharge Activity: activity as tolerated Education Materials: Understanding Colitis, ED Bradycardia, ED Low Blood Pressure, All Causes Print Language: Kyrgyz Stand Alone Forms: Laura Award Info., Patient Portal Info Letter Discharge Order Discharge Orders: Discharge (Routine); Ordered 09/19/24 Ordered By: Toribio Baez
[2024-09-19 16:00] VITALS: BP 138/71; PULSE 88; RESP 18; TEMP 36.7; O2SAT 95
--- NOTE | 2024-09-19 19:35 | ESDS_ITS ---
Planned Discharge Date 09/19/24 DS: Providers Provider Date of admission: 09/17/24 04:17 Primary care physician: Sergio Luna MD Admitting Provider: Lorenzo Ngo MD Attending Provider on Admission: Lorenzo Ngo MD Consults: 09/17/24 17:16 Referral Physical Therapy Routine Comment: Physician Instructions: Instructions: non-weight bearing to left lower extremity per surgeon that fixed left ankle fracture. Attending Provider on DC: RESIDENT Walter Discharging Provider: RESIDENT Walter DS: Diagnosis Problem List Completed Was Problem List Reviewed/Reconciled?: Yes Hospital Course Hospital Course Hospital course: [facility] Attestation: Patient is a 78-year-old female with a past medical history of atrial fi brillation on Eliquis, hypertension, hyperlipidemia, obstructive airway disease, likely COPD, hypothyroidism, history of GERD, history of diaphragmatic hernia without obstruction, history of large ulcerated gastric polyp who presented to the emergency room with a chief complaint of dizziness, weakness and hypotensive. Per chart review recent ankle fracture after syncopal event as patient was reaching for a door handle. Orthostatic vitals per patient were negative. While via EMS patient received 0.5 mg IV push of atropine. Patient was admitted on 09/17/2024 secondary to presyncopal event and diverticulitis with lactic acidosis. Pre-syncope likely multi-factorial, please re-evaluate blood pressure medication, dosage of anti-arrhythmic medication as patient was noted bradycardia via EMS. TSH 6.08 and T4 1.93, please follow up with patient's [employer]. Patient likely benefit from cardiology consult as outpatient. ER course Initially came in hypotensive and afebrile. Initial labs were relevant for leukocytosis, hypokalemia, lactic acidosis, mildly elevated T4, and UA was unremarkable. Initial imaging included chest/abdomen x-ray that show suspicion for left base pneumonia, head CT which was unremarkable, EKG which showed A-fib with a heart rate of 85, and chest/abdomen/pelvis CTA which showed colitis pattern which is concerning for mild diverticulitis involving the descending colon and rectosigmoid colon, but no perforations or bowel obstruction noted. Hospital course: Patient orthostatics negative systolic change in less than 20 and diastolic change less than 10. EKG noted for atrial fibrillation sinus rate controlled on diltiazem and Eliquis. CT abdomen pelvis noted to show moderate calcification of the left anterior descending coronary artery, patient would likely benefit from cardiology. Retrogastric hernia present, continue PPIs. Incidental calcified granuloma right upper lobe. Colonic diverticulosis noted and diverticulitis and colon and sigmoid. Patient treated with zosyn IV and discharged with Augmentin for 7 for days. TSH 6.08 and Free T4 1.93. Please follow up with [employer] for any adjustments need for home levothyroxine. Discharged on Blood culture negative after 48 hours. Incidental fat-containing inguinal hernia. Echo (09/18/2024) normal LV size, Mild LVH, EF 60% and Severe MARIO. Please follow up with PCP if any changes need to be made to blood pressure medication as patient remained normal tensive during hospital stay despite holding off on Hydrochlorthiazide. #Diverticulitis and Diverticulosis #Presyncope, likely multi-factorial #Hypotensive, resolved #Bradycardia #Hypokalemia, likely in the setting of HCTZ use #CAP #History of Atrial fibrillation #Hypothyroidism #history of diabetes mellitus #Lactic acidosis, resolved. #Retrocardiac gastric hernia #Incidental fat-containing inguinal hernia #Primary osteopenia and degenerative disc disease #Moderate calcification left anterior descending coronary artery - The patient's plan was discussed with attending Dr. Nestor Alfonso MD PGY1 Internal Medicine Summary: 78-year-old female with past medical history of A-fib (on diltiazem and Eliquis), hypertension, COPD/asthma, and hypothyroidism was admitted to the hospital on 09/17/2024 for diverticulitis/colitis and presyncopal episode. Treated with IV fluids and IV zosyn Hospital Course: Chest/abdomen/pelvis CTA which showed colitis pattern which is concerning for mild diverticulitis involving the descending colon and rectosigm oid colon with large amount of stool throughout the colon, but no perforations or bowel obstruction. Treated with IV fluids and IV zosyn. Negative Blood culture for 48 hrs. Her symptoms resolved. Summary of discharge instructions: -Please continue all home medication as prescribed. -Continue Augmentin for antibiotics for 7 more days. -Please follow up with your primary care provider within one week of discharge -If your symptoms worsen,please seek immediate medical attention and return to your nearest emergency room -If you do not have a primary care provider, you may follow up at the [facility] at [address], [place] [address], Diagnosis: #Diverticulitis/colitis #Lactic acidosis, resolved #Presyncope #Hx of syncopal episode #Hypotension #Bradycardia #Hypokalemia #History of A-fib #Community acquired pneumonia #History of COPD/asthma #History of hypothyroidism #Diabetes mellitus type 2 Safe to discharge to home health Time Spent with Patient Time attestation: Total time spent providing and/or coordinating discharge services: At least 30 minutes of care coordination Time spent: Greater than 30 minutes Home Health Home Health Referral Orders: 09/18/24 14:21 Home Health Referral Routine Reason For Exam: debility Home-Bound The patient must either because of illness or injury, need the aid of supportive devices such as crutches, canes, wheelchairs, and walkers; the use of special transportation; or the assistance of another person in order to leave their place of residence; OR have a condition such that leaving his or her home is medically contraindicated. In addition, the patient also meets the following criteria: patient is normally unable to leave the home and leaving home requires considerable taxing effort. Addendum to Home Health Certification Practitioner's Certification: I certify that the patient has been under my care in the hospital and the care of attending physician (see below). We had a bahb-la-cssi encounter on (see date below). My clinical findings indicate that the patient is home bound per the above criteria and the Home Health Services noted in these orders are medically necessary. The primary reason for the hghy-ec-nqdt encounter is related to the fact that the patient requires home health services. Date Certifying Pkup-wp-Kuki Physician Encounter: 09/17/24 Physician's Name who will Assume Oversight for Services: Sergio Luna Physician's Phone No.who will Assume Oversight for Service: [facility] [place] - Community Resources: No PT to Evaluate: Yes PT to evaluate and provide a treatmnet plan to increase patient's mobility and strength. Wound Care: No IV Therapy: No Discontinue PICC Line Once Treatment Complete: No RN Safety Evaluation: Yes RN to evaluate and create a plan of care that will produce positive outcomes. Palliative Treatment: No Palliative treatment and evaluate the need for hospice. Home Health Aide - Personal Care: No Home Health Aide to assist with any ADL's. 09/19/24 08:51 Home Health Referral Routine Reason For Exam: debility Home-Bound The patient must either because of illness or injury, need the aid of supportive devices such as crutches, canes, wheelchairs, and walkers; the use of special transportatio n; or the assistance of another person in order to leave their place of residence; OR have a condition such that leaving his or her home is medically contraindicated. In addition, the patient also meets the following criteria: patient is normally unable to leave the home and leaving home requires considerable taxing effort. Addendum to Home Health Certification Practitioner's Certification: I certify that the patient has been under my care in the hospital and the care of attending physician (see below). We had a fwgm-ze-rmyi encounter on (see date below). My clinical findings indicate that the patient is home bound per the above criteria and the Home Health Services noted in these orders are medically necessary. The primary reason for the sukk-ca-xosx encounter is related to the fact that the patient requires home health services. Date Certifying Beek-gk-Jgss Physician Encounter: 09/17/24 Physician's Name who will Assume Oversight for Services: Sergio Luna Physician's Phone No.who will Assume Oversight for Service: INDUCTION COORDINATION ENGINEER - Community Resources: No PT to Evaluate: Yes PT to evaluate and provide a treatmnet plan to increase patient's mobility and strength. Wound Care: No IV Therapy: No Discontinue PICC Line Once Treatment Complete: No RN Safety Evaluation: Yes RN to evaluate and create a plan of care that will produce positive outcomes. Palliative Treatment: No Palliative treatment and evaluate the need for hospice. Home Health Aide - Personal Care: No Home Health Aide to assist with any ADL's. Exam Vital Signs Temp Pulse Resp BP Pulse Ox O2 Del Method O2 Flow Rate 98.1 F 88 18 138/71 H 95 Room Air 3 09/19/24 16:00 09/19/24 16:09/19/24 16:00 09/19/24 16:00 09/19/24 16:00 09/19/24 16:00 09/18/24 19:00 Narrative Exam VITALS:? All vitals were reviewed and the pulse ox is 98% on room air HEENT: Normocephalic, atraumatic.? Pupils are equal and reactive.? Oral mucosa is moist. Patent Nares NECK: Supple, nontender, no thyromegaly, no meningismus, no JVD, no step offs CHEST: Symmetrical, atraumatic, and with equal expansion , Nontender on palpation no deformity and no crepitus. CARDIOVASCULAR: Heart regular rhythm no murmur or gallop rub or extra beats. LUNGS: Clear to auscultation bilaterally with symmetrical chest rise.? No laboring tachypnea or wheezing.? No intercostal subcostal retraction.? No rales and no rhonchi. ABDOMEN: Soft, flat, nontender to palpation, no guarding or rebound tenderness.? There are no abnormal masses palpated.? Active and normal bowel sounds. EXTREMITIES: Nontender.? No edema.? No cyanosis.? Patient is able to move all 4 extremities well, with full ROM and good CSM. SKIN: Warm and dry, no jaundice or rashes noted. MUSCULOSKELETAL: No lumbar or midline bony tenderness.? There is no CVA tendern ess.? No paraspinal muscle spasm or tenderness. NEURO: Patient is GRAHAM x 4, Cranial nerves II through XII grossly intact.? There is no focal neurologic deficits noted.? GCS is 15, PNS and PARTS LISTER appear grossly intact. PSYCHIATRIC: Patient is in normal mood and affect, cooperative, no SI or HI or hallucinations. Discharge Plan Plan Patient Disposition: Home w/HOME HEALTH Patient condition on transfer: Stable Care Plan Goals: -Please continue all home medication as prescribed. -Continue Augmentin for antibiotics for 7 more days. -Please follow up with your primary care provider within one week of discharge -If your symptoms worsen,please seek immediate medical attention and return to your nearest emergency room -If you do not have a primary care provider, you may follow up at the [facility] at [address], [place] [address], Prescriptions/Referrals Prescriptions/Med Rec: New amoxicillin-pot clavulanate 875-125 mg tablet 1 tab PO BID Qty: 14 0RF Rx Instructions: 1 tab 875/125mg PO bid for diverticulitis Continued omeprazole 40 MG capsule,delayed release(DR/EC) 40 mg PO QDAY Qty: 0 Benazepril Hcl * (LOTENSIN *) 10 MG tablet 10 mg PO QDAY Qty: 0 Levothyroxine * (SYNTHROID *) 88 mcg tablet 100 mcg PO ACBR Qty: 0 diltiazem HCl [DILT-XR] 180 mg Capsule,Ext.Rel 24h Degradable 180 mg PO QDAY atorvastatin 10 mg tablet 10 mg PO HS hydrochlorothiazide 12.5 mg capsule 12.5 mg PO QDAY Patient Comments: TAKE ONE CAPSULE BY MOUTH EVERY MORNING A DIURETIC calcitriol 0.25 mcg capsule See Rx Instructions .ROUTE .COMPLEX Patient Comments: TAKE ONE CAPSULE BY MOUTH TWICE A WEEK Rx Instructions: 0.25 mcg orally DAILY FOR 5 DAYS A WEEK Eliquis 5 mg tablet 5 mg PO QDAY Patient Comments: TAKE ONE TABLET BY MOUTH TWICE DAILY Arnuity Ellipta 100 mcg/actuation blister with device 1 inh inhalation QDAY cetirizine [Zyrtec] 10 mg tablet 10 mg PO QDAY PRN (Reason: allergy symptoms) ferrous sulfate [FeroSul] 325 mg (65 mg iron) tablet 325 mg PO QDAY Patient Comments: TAKE ONE TABLET BY MOUTH EVERY DAY VITAMIN WITH ORANGE JUICE Referrals: Sergio Luna MD [Primary Care Provider] - Patient/Caregiver Discharge Instructions Discharge Activity: activity as tolerated Education Materials: Understanding Colitis, ED Bradycardia, ED Low Blood Pressure, All Causes Print Language: Malay Stand Alone Forms: Laura Award Info., Patient Portal Info Letter Discharge Order Discharge Orders: Discharge (Routine); Ordered 09/19/24 Ordered By: Toribio Baez Quality Discharge Quality Measures VTE prophylaxis Attestestation Attestation I have discussed and was present for the essential components of the discharge history, physical examination, diagnosis, and discharge treatment plan with the resident. I agree with the patient's discharge care as documented by the resident and amended herein by me. Benjamin Baez, DO. Patient significantly improved on day of discharge, able to tolerate p.o. diet and pain minimal. Patient discharged on a 7-day course of Augmentin, recommended to follow-up with her PCP within 1 week of discharge for further ev aluation. Echocardiogram was performed on this admission due to initial bradycardia and presyncope however her echo was largely unremarkable, EF 60% with normal LV size and mild LVH. Patient was stable, afebrile, tolerating p.o. intake and ambulatory at time of discharge home. The patient understood all discharge instructions, all questions were answered satisfactorily. The patient was instructed to return to the Emergency Department is symptoms worsened or persisted. Although this document has been carefully reviewed, there may still be some phonetic and other typographical errors. These errors are purely grammatical due to imperfections in the software program and should not be construed in any way to compromise the substance of the patient's medical care during this visit.
--- NOTE | 2024-09-21 09:56 | PC.CC ---
Addendum entered by Ju Gaines RN 09/21/24 12:33: SOC is 09/24 Addendum entered by Ju Gaines RN 09/21/24 10:34: Patient is accepted to [facility], will wait for SOC Original Note: HH referrals sent to all agencies, pt had no preference
== END 2024-09-19 15:55 | disposition home health service (06) | DRG 391 ==
LOC: SERX 22:34 → SERHOLD 09-17 04:44 → S2NX 09-17 20:20
PROVIDERS: Student in an Organized Health Care Education/Training Program; Admitting Provider Internal Medicine; Emergency Provider Emergency Medicine; PCP Internal Medicine; Visit Provider Internal Medicine
DX: K57.32 Diverticulitis of large intestine without perforation or abscess without bleeding (principal); J18.9 Pneumonia, unspecified organism; J44.0 Chronic obstructive pulmonary disease with (acute) lower respiratory infection; E87.20 Acidosis, unspecified; I48.91 Unspecified atrial fibrillation; E03.9 Hypothyroidism, unspecified; I10 Essential (primary) hypertension; R42 Dizziness and giddiness; I95.9 Hypotension, unspecified; K40.90 Unilateral inguinal hernia, without obstruction or gangrene, not specified as recurrent; E11.9 Type 2 diabetes mellitus without complications; Z90.49 Acquired absence of other specified parts of digestive tract; M85.80 Other specified disorders of bone density and structure, unspecified site; K52.9 Noninfective gastroenteritis and colitis, unspecified; K59.00 Constipation, unspecified; R55 Syncope and collapse; E78.00 Pure hypercholesterolemia, unspecified; K45.8 Other specified abdominal hernia without obstruction or gangrene; E87.6 Hypokalemia; Z79.01 Long term (current) use of anticoagulants; W19.XXXA Unspecified fall, initial encounter; Z79.890 Hormone replacement therapy; Z88.8 Allergy status to other drugs, medicaments and biological substances
CPT/HCPCS: 36415; 70450; 71275; 74022; 74174; 80053; 81001; 83605; 83690; 83735; 83880; 84145; 84439; 84443; 84484; 85025; 85610; 85730; 87040; 87086; 87811; 93005; 93306; 94664; 96365; 96366; 96367; 96368; 96375; 96376; 97162; 99285; A4649; J2405; J2543; J3010; J3475; J3480; J7030; Q9967; A9270

== ENCOUNTER → 2024-10-17 | Outpatient (CLI) | payer OTHER, SELFPAY ==
[2024-10-17 11:57] LABS: Collection Type, Urine Clean Catch
[2024-10-17 12:27] LABS: Basophils # (Auto) 0.1 Thou/mm3 (0.0-0.2); Basophils % (Auto) 1 % (0-2.5); Eosinophils # (Auto) 0.1 Thou/mm3 (0.0-0.5); Eosinophils % (Auto) 1 % (0-10); Hematocrit 34.8 % (36.0-46.0); Hemoglobin 11.3 g/dL (12.0-16.0); Immature Granulocytes Auto 0.04 Thou/mm3 (0.00-0.00); Lymphocytes # (Auto) 3.0 Thou/mm3 (1.0-4.8); Lymphocytes % (Auto) 30 % (10-50); Mean Corpuscular HGB Conc 32.5 g/dl (31.0-37.0); Mean Corpuscular Hemoglobin 28.1 pg (25.0-35.0); Mean Corpuscular Volume 87 fL (80-100); Monocytes # (Auto) 1.0 Thou/mm3 (0.0-0.8); Monocytes % (Auto) 10 % (0-12); Neutrophils # (Auto) 5.7 Thou/mm3 (1.8-7.7); Neutrophils % (Auto) 58 % (37-80); Nucleated Red Blood Cell # 0.00 Thou/mm3 (0.00-0.00); Nucleated Red Blood Cell % 0 /100 WBC (0); Platelet Count 359 Thou/mm3 (140-440); RDW Standard Deviation 48.8 fL (36.4-46.3); Red Blood Count 4.02 Miln/mm3 (4.00-5.20); White Blood Count 9.9 Thou/mm3 (3.6-11.0)
[2024-10-17 12:31] LABS: Bilirubin,Urine Negative (Negative); Blood,Urine Negative (Negative); Clarity,Urine Clear (Clear/Hazy); Color,Urine Colorless (Lt Yel-Yel); Glucose, Urine Negative (Negative); Ketones,Urine Negative (Negative); Leukocyte Esterase,Urine Negative (Negative); Nitrite,Urine Negative (Negative); PH,Urine 7.0 (5.0-7.0); Protein,Urine Negative (Neg - Trace); RBC,Urine 1 /hpf (0-3); Specific Gravity,Urine 1.007 (1.001-1.035); Squamous Epithelial Cell,Urine 1 /hpf (0-5); Urobilinogen,Urine Negative mg/dL (0.0-1.0); WBC,Urine < 1 /hpf (0-5)
[2024-10-17 12:38] LABS: Parathyroid Hormone Intact 78.4 pg/ml (18.5-88.0)
[2024-10-17 12:42] LABS: Alanine Aminotransferase 11 U/L (10-49); Albumin, Serum 4.2 gm/dL (3.4-4.8); Albumin/Globulin Ratio 1.8 (1.2-2.2); Alkaline Phosphatase 100 U/L (46-116); Anion Gap 8 (7-16); Aspartate Amino Transferase 18 U/L (0-34); BUN/Creatinine Ratio 8 Ratio (12-20); Bilirubin,Total 0.5 mg/dL (0.3-1.2); Blood Urea Nitrogen 6 mg/dL (9-23); Calcium 9.2 mg/dL (8.3-10.6); Calcium (Corrected) 9.2 mg/dL (8.5-10.1); Carbon Dioxide 24.9 mMol/L (20.0-31.0); Cardiac Risk Estimate 2.6 RATIO (3.7-5.6); Chloride 105 mMol/L (98-107); Cholesterol 147 mg/dL (132-200); Creatinine (Component) 0.8 mg/dL (0.6-1.3); Globulin 2.3 gm/dL (2.3-3.5); Glucose 97 mg/dL (74-106); HDL Cholesterol 56 mg/dL (40-60); LDL Cholesterol,Calculated 70 mg/dL (0-130); Osmolality,Calculated 273 (275-295); Potassium 3.6 mMol/L (3.4-5.1); Sodium 138 mMol/L (136-145); Thyroid Stimulating Hormone 2.17 uIU/mL (0.55-4.78); Total Protein 6.5 gm/dL (5.7-8.2); Triglycerides 106 mg/dL (30-150); eGFR > 60 See Note
[2024-10-17 12:57] LABS: Creatinine MALB Rnd Ur 45 mg/dL (30-125); Microalbumin, Random Urine < 3 mg/L (0-300)
== END | disposition home or self-care (01) ==
LOC: COPL 10:53
PROVIDERS: PCP Internal Medicine; Referring Provider Internal Medicine; Visit Provider Internal Medicine
DX: I12.9 Hypertensive chronic kidney disease with stage 1 through stage 4 chronic kidney disease, or unspecified chronic kidney disease (principal); N18.30 Chronic kidney disease, stage 3 unspecified; E78.5 Hyperlipidemia, unspecified; R60.0 Localized edema; E03.9 Hypothyroidism, unspecified
CPT/HCPCS: 36415; 80053; 80061; 81001; 82043; 82570; 83970; 84443; 85025

== ENCOUNTER → 2025-02-26 | Outpatient (CLI) | payer OTHER, SELFPAY ==
[2025-02-26 12:49] LABS: Albumin, Serum 4.9 gm/dL (3.4-4.8); Anion Gap 10 (7-16); BUN/Creatinine Ratio 16 Ratio (12-20); Blood Urea Nitrogen 14 mg/dL (9-23); Calcium 10.1 mg/dL (8.3-10.6); Calcium (Corrected) 10.1 mg/dL (8.5-10.1); Carbon Dioxide 26.9 mMol/L (20.0-31.0); Chloride 103 mMol/L (98-107); Creatinine (Component) 0.9 mg/dL (0.6-1.3); Glucose 96 mg/dL (74-106); Osmolality,Calculated 279 (275-295); Phosphorous 4.0 mg/dL (2.4-5.1); Potassium 4.5 mMol/L (3.4-5.1); Sodium 140 mMol/L (136-145); Thyroid Stimulating Hormone 5.12 uIU/mL (0.55-4.78); eGFR > 60 See Note
== END | disposition home or self-care (01) ==
LOC: COPL 11:25
PROVIDERS: PCP Internal Medicine; Referring Provider Internal Medicine; Visit Provider Internal Medicine
DX: E03.9 Hypothyroidism, unspecified (principal); I10 Essential (primary) hypertension
CPT/HCPCS: 36415; 80069; 84443